=== PATIENT | female | born 1965 | race Caucasian/White ===

== ENCOUNTER 2024-02-01 07:53 | Outpatient (AMB) | payer MEDICAID, SELFPAY ==
--- NOTE | 2024-02-01 08:09 | ORTHONT_ITS ---
Vital signs 02/01/24 08:10 Height 1.5 m Height Method Stated Weight 88.451 kg Weight Measurement Method Standing Scale BMI 39.3 BP 121/79 Blood Pressure Source Automatic Cuff Blood Pressure Location Left Upper Arm Position Sitting Respiration 18 Pulse 62 Pulse Source Monitor Temp 96.1 F L Temp Source Temporal Artery Scan Pulse Oximetry (%) 97 Oxygen Delivery Method Room Air Med/Allergies Allergies & Medications Allergies No Known Allergies Allergy (Verified 02/01/24 08:10) Medication Reconciliation famotidine 40 mg tablet (Pepcid) 40 mg PO QDAY #30 tabs 07/16/20 [Rx Confirmed 02/01/24] acetaminophen 650 mg tablet,extended release (Tylenol Arthritis Pain) 650 mg PO Q12H pain #14 tabs 10/26/23 [Rx Confirmed 02/01/24] amlodipine 10 mg tablet 10 mg PO QDAY 02/01/24 [History Confirmed 02/01/24] losartan 100 mg-hydrochlorothiazide 25 mg tablet 1 tab PO QDAY 02/01/24 [History Confirmed 02/01/24] meloxicam 15 mg tablet 15 mg PO QDAY #60 tabs 02/01/24 [Rx] Subjective Visit Visit for: new patient and knee (RIGHT) Immunization / Flu Flu Vaccine in the Last 12 Months: Yes Flu Vaccine Exclusion Criteria: Already Received History of Present Illness Chief complaint: PAIN IN RIGHT KNEE Date of injury / onset of symptoms: 03/2021 Patient is a pleasant 58-year-old female with right greater than left knee pain. This been ongoing for over 3 years. She is tried meloxicam and injections in the past. She reports the pain is starting affect her quality life and happiness. The pain is primarily on the inside of both knees. She has noticed deformity in the knee which have been curving and recently. Personal History Occupation: FARM LABOR WORKER Pain Pain level (0-10): 10 Pain duration: CONSTANT Pain location: inside (medial), outside (lateral), anterior and posterior Pain quality: sharp, dull, aching, burning and shocking Pain timing: night, increases with activity and stairs Associated signs & symptoms: numbness, weakness and stiffness Ambulatory data Ambulatory device: none Treatments Number of previous injections: 1 Improvement with previous injections: No Improvement with PT: No Improvement with NSAIDS: no Review of Systems Review of Systems: All systems negative unless otherwise noted in HPI. Exam Exam Patient is in no acute distress and is cooperative with the examination today. Breathing is nonlabored. In no respiratory distress. Bilateral extremities were evaluated and demonstrates sensation intact to light touch. Palpable pedal pulses are present. No significant edema is present. Bilateral hips were examined. The patient has no pain with log roll of the hips. Internal rotation to 30 degrees and external rotation to 30 degrees is painless. Negative FADIR. The left knee was examined. The left knee is in [varus] alignment. Range of motion from [0-115] degrees. Knee is stable to varus and valgus as well as AP translation with <5mm. Patient has a [negative] McMurrays. There is [no] pain with patellofemoral compression and [no] crepitus noted. The knee is [tender] to palpation [medially]. The right knee was also examined. The right knee is in [varus] alignment. Range of motion from [0-120] degrees. Knee is stable to varus and valgus as well as AP translation with <5mm. Patient has a [negative] McMurrays. There is [no] pain with patellofemoral compression and [no] crepitus noted. The knee is [tender] to palpation [medially]. Nonweightbearing x-rays demonstrate severe arthritis on the right. There is varus deformity. We Will order bilateral knee x-rays that are weightbearing Assessment and Plan Problem List (1) Arthritis of both knees: Status: Acute Plan: 58-year-old female with bilateral knee pain and bilateral knee arthritis. She has significant varus deformity of both knees. The right knee pain is worse than the left. We will order weightbearing x-rays and go from there. She is actually already failed conservative treatment with pain is affecting her quality life and happiness. We will likely discuss total knee replacement depending on what the x-rays show Office Procedures GNS Level of Care Nursing/Assessment Patient Status: Initial/New Patient Nursing Assessment/Reassesment: Medication Reconciliation, Update PMH in EMR and Vital Signs Coordination of Care: Complex Care and Chronic Disease 1-5, Education Complex Pt/Fam, Consent,records obtained, informed consent, 1 Ins Authorization, Lab and Imaging orders, Results/Orders obtained and Staff clarify orders New Patient Charge New Patient Point Assignment: 1124 New Patient Point Charge: [employer] TE[employer] Level 4 ([id number]) Past Medical History Past Medical History Have you ever been diagnosed with any of the following: Cardiology Problems Congestive Heart Failure: No Hypertension: Yes Respiratory Problems Chronic Obstructive Pulmonary Disease (COPD): No Smoking: No Smoking Exposure: No Genital/Urinary Problems Renal Disease: No Endocrine Problems Diabetes Mellitus Type 1: No Diabetes Mellitus Type 2: No
[2024-02-01 08:10] VITALS: BP 121/79; PULSE 62; RESP 18; TEMP 35.6; O2SAT 97; BMI 39.3
== END 2024-02-01 08:39 | disposition home or self-care (01) ==
PROVIDERS: PCP Family Medicine; Referring Provider Family Medicine; Supervising Provider Orthopaedic Surgery Adult Reconstructive Orthopaedic Surgery; Visit Provider Orthopaedic Surgery Adult Reconstructive Orthopaedic Surgery
DX: M17.0 Bilateral primary osteoarthritis of knee (principal); M25.562 Pain in left knee; M25.561 Pain in right knee; M21.162 Varus deformity, not elsewhere classified, left knee; M21.161 Varus deformity, not elsewhere classified, right knee; I10 Essential (primary) hypertension
CPT/HCPCS: 99204; G0463

== ENCOUNTER 2024-02-15 07:56 | Outpatient (AMB) | payer MEDICAID, SELFPAY ==
[2024-02-15 08:11] VITALS: BP 127/79; PULSE 65; RESP 18; TEMP 36.1; O2SAT 97; BMI 39.9
--- NOTE | 2024-02-15 08:11 | PD.ORTHCLVIS ---
Vital signs 02/15/24 08:11 Height 1.5 m Height Method Stated Weight 89.896 kg Weight Measurement Method Standing Scale BMI 39.9 BP 127/79 Blood Pressure Source Automatic Cuff Blood Pressure Location Right Upper Arm Position Sitting Respiration 18 Pulse 65 Pulse Source Monitor Temp 96.9 F Temp Source Temporal Artery Scan Pulse Oximetry (%) 97 Oxygen Delivery Method Room Air Med/Allergies Allergies & Medications Allergies No Known Allergies Allergy (Verified 02/15/24 08:12) Medication Reconciliation famotidine 40 mg tablet (Pepcid) 40 mg PO QDAY #30 tabs 07/16/20 [Rx Confirmed 02/15/24] acetaminophen 650 mg tablet,extended release (Tylenol Arthritis Pain) 650 mg PO Q12H pain #14 tabs 10/26/23 [Rx Confirmed 02/15/24] amlodipine 10 mg tablet 10 mg PO QDAY 02/01/24 [History Confirmed 02/15/24] losartan 100 mg-hydrochlorothiazide 25 mg tablet 1 tab PO QDAY 02/01/24 [History Confirmed 02/15/24] meloxicam 15 mg tablet 15 mg PO QDAY #60 tabs 02/01/24 [Rx Confirmed 02/15/24] Subjective Visit Visit for: follow up visit, knee and x-rays Immunization / Flu Flu Vaccine in the Last 12 Months: No Flu Vaccine Exclusion Criteria: No Exclusion Criteria History of Present Illness Chief complaint: F/U KNEE XRAYS Date of injury / onset of symptoms: 03/2021 Patient is a pleasant 58-year-old female with right greater than left knee pain. This been ongoing for over 3 years. She is tried meloxicam and injections in the past. She reports the pain is starting affect her quality life and happiness. The pain is primarily on the inside of both knees. She has noticed deformity in the knee which has been curving in recently. Personal History Occupation: FARM LABOR WORKER Pain Pain level (0-10): 10 Pain duration: ALL DAY Pain location: inside (medial), outside (lateral), anterior and posterior Pain quality: sharp, dull and aching Pain timing: night, increases with activity and stairs Associated signs & symptoms: numbness, weakness and stiffness Ambulatory data Ambulatory device: none Treatments Number of previous injections: 1 Improvement with previous injections: No Improvement with PT: No Improvement with NSAIDS: n/a Review of Systems Review of Systems: All systems negative unless otherwise noted in HPI. Exam Exam Patient is in no acute distress and is cooperative with the examination today. Breathing is nonlabored. In no respiratory distress. Bilateral extremities were evaluated and demonstrates sensation intact to light touch. Palpable pedal pulses are present. No significant edema is present. Bilateral hips were examined. The patient has no pain with log roll of the hips. Internal rotation to 30 degrees and external rotation to 30 degrees is painless. Negative FADIR. The left knee was examined. The left knee is in [varus] alignment. Range of motion from [0-115] degrees. Knee is stable to varus and valgus as well as AP translation with <5mm. Patient has a [negative] McMurrays. There is [no] pain with patellofemoral compression and [no] crepitus noted. The knee is [tender] to palpation [medially]. The right knee was also examined. The right knee is in [varus] alignment. Range of motion from [0-120] degrees. Knee is stable to varus and valgus as well as AP translation with <5mm. Patient has a [negative] McMurrays. There is [no] pain with patellofemoral compression and [no] crepitus noted. The knee is [tender] to palpation [medially]. Xrays demonstrate complete joint space obliteration and osteoarthritis Bilaterally. Assessment and Plan Problem List (1) Arthritis of both knees: Status: Acute Plan: 58-year-old female with bilateral knee pain and bilateral knee arthritis. She has significant varus deformity of both knees. The right knee pain is worse than the left. Weightbearing x-rays demonstrate complete joint space obliteration medially and varus deformity. We thus discussed total knee replacement is reasonable option as she is failed injections and anti-inflammatories. The pain is also affecting her quality life and happiness. The last injections only lasted less than a month. We will start with a right total knee replacement as this is the knee that is bothering her more. She will need cardiac clearance as she sometimes gets lightheaded. She is seeing her pulp making plant operator tomorrow The nature and purpose of the total knee replacement, alternative method(s) of treatment, the material risks involved, and the possibility of complications were fully explained to the patient. The patient does NOT have any of the following contraindications to TKA: - Active infection of the knee joint, OR - Active systemic bacteremia, OR - Active skin infection or open wound at surgical site, OR - Neuropathic arthritis, OR - Severe, rapidly progressive neurological disease, OR - Severe medical condition that makes risks of surgery outweigh the potential benefit The patient was told the most common risks and complications associated with a total knee replacement include, but are not limited to: blood clots in the leg, fatal pulmonary embolism, dislocation of the prosthesis, intraoperative and postoperative fractures of the femur or tibia, infection, failure of the prosthesis or grafting materials, complications from anesthesia, reactions to blood transfusions, postoperative leg length inequality, instability of the knee replacement, nerve damage or injury, vascular injury, delayed wound healing, infection, other injury or even . In addition, there are risks associated with anesthesia given during this operation. Also, the patient was told that after undergoing a total knee replacement there may still be persistent pain or disability. The patient was informed that the success of this operation in part depends upon the mechanical devices which are going to be implanted and that these devices can fail or malfunction, and may need to be repaired or replaced and there are no guarantees as to the longevity of this device or its parts and that it or its parts could fail prematurely. The patient was also notified that during the course of surgery, there may be a need to use bone graft from donors, and that any bone graft used will be carefully screened for communicable diseases, including AIDS, hepatitis, Celso-Creutzfeldt, or other diseases, but despite the screening procedures, there is a small chance that they could contract one of these diseases. Finally, the patient was asked to follow completely and fully with all advice and recommended treatments, and that recovery and ultimate outcome are affected by their compliance with recommended treatment. We discussed the risks, benefits and treatment alternatives, and the patient is interested in proceeding with surgery. We will try to set this up as expeditiously as possible. Office Procedures GNS Level of Care Nursing/Assessment Patient Status: Established Patient Nursing Assessment/Reassesment: Medication Reconciliation, Update PMH in EMR and Vital Signs Coordination of Care: Complex Care and Chronic Disease 1-5, Education Complex Pt/Fam, Consent,records obtained, informed consent, Results/Orders obtained and Staff clarify orders Special Needs: Language special needs Established Patient Charge Established Patient Point Assignment: 95 Established Patient Point Charge: EP Level 3 (80-115) Past Medical History Past Medical History Have you ever been diagnosed with any of the following: Cardiology Problems Congestive Heart Failure: No Hypertension: Yes Respiratory Problems Chronic Obstructive Pulmonary Disease (COPD): No Smoking: No Smoking Exposure: No Genital/Urinary Problems Renal Disease: No Endocrine Problems Diabetes Mellitus Type 1: No Diabetes Mellitus Type 2: No
== END 2024-02-15 09:04 | disposition home or self-care (01) ==
LOC: HODSRG 07:56
PROVIDERS: PCP Family Medicine; Referring Provider Family Medicine; Supervising Provider Orthopaedic Surgery Adult Reconstructive Orthopaedic Surgery; Visit Provider Orthopaedic Surgery Adult Reconstructive Orthopaedic Surgery
DX: M17.0 Bilateral primary osteoarthritis of knee (principal); M25.562 Pain in left knee; M25.561 Pain in right knee; M21.162 Varus deformity, not elsewhere classified, left knee; M21.161 Varus deformity, not elsewhere classified, right knee; I10 Essential (primary) hypertension
CPT/HCPCS: 99213; G0463

== ENCOUNTER → 2024-03-06 | Outpatient (CLI) | payer MEDICAID, SELFPAY ==
--- NOTE | 2024-03-06 08:00 | XR_ITS ---
Examination: CT right lower extremity, without contrast. 2-D sagittal reconstructions. 2-D coronal reconstructions. 3-D reconstructions. Date and time of exam:March 06, 2024 0827 hours INDICATIONS: Osteoarthritis right knee pain 2 years CTDI: vol (mGy):12.9 DLP: (mGycm):916 Technique: Multiple 1.25 mm axial sections of the right have been obtained. 2-D sagittal and coronal reconstructions have been obtained. 3-D reconstructions have been obtained. Low dose protocols were performed. One or more of the following dose reduction techniques were used; automated exposure control, adjustment of the mA and/or KV according to patient size, use of iterative reconstruction technique. Findings: Moderate osteopenia Mild right hip osteoarthritis No hip fracture or hip dislocation Advanced right knee tricompartment osteoarthritis, severe narrowing medial joint space No fracture or patellar dislocation IMPRESSION: Advanced right knee tricompartment osteoarthritis, severe narrowing medial joint space
== END | disposition home or self-care (01) ==
PROVIDERS: Referring Provider Orthopaedic Surgery Adult Reconstructive Orthopaedic Surgery; Visit Provider Orthopaedic Surgery Adult Reconstructive Orthopaedic Surgery
DX: M17.11 Unilateral primary osteoarthritis, right knee (principal); M25.861 Other specified joint disorders, right knee
CPT/HCPCS: 73700

== ENCOUNTER 2024-03-11 10:29 | Outpatient (AMB) | payer MEDICAID, SELFPAY ==
--- NOTE | 2024-03-11 11:40 | PD.ORTHCLVIS ---
Vital signs 03/11/24 11:41 Height 1.5 m Height Method Stated Weight 89.811 kg Weight Measurement Method Standing Scale BMI 39.9 BP 129/75 Blood Pressure Source Automatic Cuff Blood Pressure Location Right Upper Arm Position Sitting Respiration 18 Pulse 60 Pulse Source Monitor Temp 97.4 F Temp Source Temporal Artery Scan Pulse Oximetry (%) 94 L Oxygen Delivery Method Room Air Med/Allergies Allergies & Medications Allergies No Known Allergies Allergy (Verified 03/11/24 11:42) Medication Reconciliation famotidine 40 mg tablet (Pepcid) 40 mg PO QDAY #30 tabs 07/16/20 [Rx Confirmed 03/11/24] acetaminophen 650 mg tablet,extended release (Tylenol Arthritis Pain) 650 mg PO Q12H pain #14 tabs 10/26/23 [Rx Confirmed 03/11/24] amlodipine 10 mg tablet 10 mg PO QDAY 02/01/24 [History Confirmed 03/11/24] losartan 100 mg-hydrochlorothiazide 25 mg tablet 1 tab PO QDAY 02/01/24 [History Confirmed 03/11/24] meloxicam 15 mg tablet 15 mg PO QDAY #60 tabs 02/01/24 [Rx Confirmed 03/11/24] Exam Exam Patient is in no acute distress and is cooperative with the examination today. Breathing is nonlabored. In no respiratory distress. Bilateral extremities were evaluated and demonstrates sensation intact to light touch. Palpable pedal pulses are present. No significant edema is present. Bilateral hips were examined. The patient has no pain with log roll of the hips. Internal rotation to 30 degrees and external rotation to 30 degrees is painless. Negative FADIR. The left knee was examined. The left knee is in [varus] alignment. Range of motion from [0-115] degrees. Knee is stable to varus and valgus as well as AP translation with <5mm. Patient has a [negative] McMurrays. There is [no] pain with patellofemoral compression and [no] crepitus noted. The knee is [tender] to palpation [medially]. The right knee was also examined. The right knee is in [varus] alignment. Range of motion from [0-120] degrees. Knee is stable to varus and valgus as well as AP translation with <5mm. Patient has a [negative] McMurrays. There is [no] pain with patellofemoral compression and [no] crepitus noted. The knee is [tender] to palpation [medially]. Xrays demonstrate complete joint space obliteration and osteoarthritis Bilaterally. Assessment and Plan Problem List (1) Arthritis of both knees: Status: Acute Plan: 58-year-old female with bilateral knee pain and bilateral knee arthritis. She has significant varus deformity of both knees. The right knee pain is worse than the left. Weightbearing x-rays demonstrate complete joint space obliteration medially and varus deformity. We thus discussed total knee replacement is reasonable option as she is failed injections and anti-inflammatories. The pain is also affecting her quality life and happiness. The last injections only lasted less than a month. We will start with a right total knee replacement as this is the knee that is bothering her more. She will need cardiac clearance as she sometimes gets lightheaded. She is seeing her doctor of chiropractic tomorrow The nature and purpose of the total knee replacement, alternative method(s) of treatment, the material risks involved, and the possibility of complications were fully explained to the patient. The patient does NOT have any of the following contraindications to TKA: - Active infection of the knee joint, OR - Active systemic bacteremia, OR - Active skin infection or open wound at surgical site, OR - Neuropathic arthritis, OR - Severe, rapidly progressive neurological disease, OR - Severe medical condition that makes risks of surgery outweigh the potential benefit The patient was told the most common risks and complications associated with a total knee replacement include, but are not limited to: blood clots in the leg, fatal pulmonary embolism, dislocation of the prosthesis, intraoperative and postoperative fractures of the femur or tibia, infection, failure of the prosthesis or grafting materials, complications from anesthesia, reactions to blood transfusions, postoperative leg length inequality, instability of the knee replacement, nerve damage or injury, vascular injury, delayed wound healing, infection, other injury or even . In addition, there are risks associated with anesthesia given during this operation. Also, the patient was told that after undergoing a total knee replacement there may still be persistent pain or disability. The patient was informed that the success of this operation in part depends upon the mechanical devices which are going to be implanted and that these devices can fail or malfunction, and may need to be repaired or replaced and there are no guarantees as to the longevity of this device or its parts and that it or its parts could fail prematurely. The patient was also notified that during the course of surgery, there may be a need to use bone graft from donors, and that any bone graft used will be carefully screened for communicable diseases, including AIDS, hepatitis, Celso-Creutzfeldt, or other diseases, but despite the screening procedures, there is a small chance that they could contract one of these diseases. Finally, the patient was asked to follow completely and fully with all advice and recommended treatments, and that recovery and ultimate outcome are affected by their compliance with recommended treatment. We discussed the risks, benefits and treatment alternatives, and the patient is interested in proceeding with surgery. We will try to set this up as expeditiously as possible. Office Procedures GNS Level of Care Nursing/Assessment Patient Status: Established Patient Nursing Assessment/Reassesment: Medication Reconciliation, Update PMH in EMR and Vital Signs Coordination of Care: Complex Care and Chronic Disease 1-5, Education Complex Pt/Fam, Consent,records obtained, informed consent, Results/Orders obtained and Staff clarify orders Special Needs: Language special needs Established Patient Charge Established Patient Point Assignment: 95 Established Patient Point Charge: EP Level 3 (80-115) MA Intake Visit Data Collection New Patient or Established: Established Patient (seen at [facility] within 3 years) Reason for Visit:: PRE OP OF RT TKA Seen by Clinical Staff ONLY (RN/MA): No Verbal consent obtained for Telemed visit?: No Event Services Manager Required: No PCP or OBGYN visit in last 3 months: Yes Hx Now: No Do You Feel Safe at Home: Yes Authorities Contacted: N/A Questionairres Past Medical History Past Medical History Have you ever been diagnosed with any of the following: Cardiology Problems Congestive Heart Failure: No Hypertension: Yes Respiratory Problems Chronic Obstructive Pulmonary Disease (COPD): No Smoking: No Smoking Exposure: No Genital/Urinary Problems Renal Disease: No Endocrine Problems Diabetes Mellitus Type 1: No Diabetes Mellitus Type 2: No Subjective Visit Visit for: follow up visit and knee Immunization / Flu Flu Vaccine in the Last 12 Months: Yes Flu Vaccine Exclusion Criteria: Already Received History of Present Illness Chief complaint: PRE-OPT RT TKA Patient is a pleasant 58-year-old female with right greater than left knee pain. This been ongoing for over 3 years. She is tried meloxicam and injections in the past. She reports the pain is starting affect her quality life and happiness. The pain is primarily on the inside of both knees. She has noticed deformity in the knee which has been curving in recently. Pain Pain duration: 8 Pain location: inside (medial), outside (lateral), anterior and posterior Pain quality: sharp, dull and aching Ambulatory data Ambulatory device: none Treatments Improvement with previous injections: No Improvement with PT: No Improvement with NSAIDS: n/a Review of Systems Review of Systems: All systems negative unless otherwise noted in HPI.
[2024-03-11 11:41] VITALS: BP 129/75; PULSE 60; RESP 18; TEMP 36.3; O2SAT 94; BMI 39.9
== END 2024-03-11 11:51 | disposition home or self-care (01) ==
LOC: HODSRG 10:29
PROVIDERS: PCP Family Medicine; Referring Provider Family Medicine; Supervising Provider Orthopaedic Surgery Adult Reconstructive Orthopaedic Surgery; Visit Provider Orthopaedic Surgery Adult Reconstructive Orthopaedic Surgery
DX: M17.0 Bilateral primary osteoarthritis of knee (principal); M25.562 Pain in left knee; M25.561 Pain in right knee; Z96.651 Presence of right artificial knee joint; M21.162 Varus deformity, not elsewhere classified, left knee; M21.161 Varus deformity, not elsewhere classified, right knee; I10 Essential (primary) hypertension
CPT/HCPCS: 99213; G0463

== ENCOUNTER 2024-03-19 07:00 | Day surgery (SDC) | payer MEDICAID, SELFPAY ==
[2024-03-17 07:23] VITALS: BMI 44.4
[2024-03-17 09:52] LABS: Basophils % (Auto) 1 % (0-2.5); Eosinophils # (Auto) 0.3 Thou/mm3 (0.0-0.5); Eosinophils % (Auto) 4 % (0-10); Hematocrit 38.2 % (36.0-46.0); Hemoglobin 13.1 g/dL (12.0-16.0); Immature Granulocytes % (Auto) 0 % (0-0); Immature Granulocytes Auto 0.02 Thou/mm3 (0.00-0.00); Lymphocytes # (Auto) 2.8 Thou/mm3 (1.0-4.8); Lymphocytes % (Auto) 39 % (10-50); Mean Corpuscular HGB Conc 34.3 g/dl (31.0-37.0); Mean Corpuscular Hemoglobin 32.2 pg (25.0-35.0); Mean Corpuscular Volume 94 fL (80-100); Monocytes # (Auto) 0.4 Thou/mm3 (0.0-0.8); Monocytes % (Auto) 6 % (0-12); Neutrophils # (Auto) 3.6 Thou/mm3 (1.8-7.7); Neutrophils % (Auto) 50 % (37-80); Nucleated Red Blood Cell % 0 /100 WBC (0); Platelet Count 235 Thou/mm3 (140-440); RDW Standard Deviation 43.9 fL (36.4-46.3); Red Blood Count 4.07 Miln/mm3 (4.00-5.20); White Blood Count 7.1 Thou/mm3 (3.6-11.0)
[2024-03-17 09:55] LABS: Alanine Aminotransferase 15 U/L (10-49); Albumin, Serum 4.5 gm/dL (3.4-4.8); Albumin/Globulin Ratio 1.5 (1.2-2.2); Alkaline Phosphatase 104 U/L (46-116); Anion Gap 8 (7-16); Aspartate Amino Transferase 30 U/L (0-34); BUN/Creatinine Ratio 23 Ratio (12-20); Bilirubin,Total 0.6 mg/dL (0.3-1.2); Blood Urea Nitrogen 23 mg/dL (9-23); Calcium 9.8 mg/dL (8.3-10.6); Calcium (Corrected) 9.8 mg/dL (8.5-10.1); Carbon Dioxide 28.1 mMol/L (20.0-31.0); Chloride 104 mMol/L (98-107); Estimated Creatinine Clearance 55.8 mL/min (>60); Glucose 103 mg/dL (74-106); Osmolality,Calculated 283 (275-295); Potassium 4.2 mMol/L (3.4-5.1); Sodium 140 mMol/L (136-145); Total Protein 7.5 gm/dL (5.7-8.2); eGFR > 60 See Note
[2024-03-17 09:56] LABS: INR 1.1 (0.9-1.3); Partial Thromboplastin Time 26.6 Seconds (22.0-36.0); Prothrombin Time 11.9 Seconds (9.0-12.2)
--- NOTE | 2024-03-17 13:29 | SUR.PREOP ---
Cardiac records reviewed with Dr Giraldo.
[2024-03-19] VITALS (15 sets, daily range): BP systolic 109–127; BP diastolic 60–80; PULSE 58–92; RESP 13–20; TEMP 36.4–36.9; O2SAT 96–100; BMI 43.9
[2024-03-19] MEDS: RINGERS LACTATED 1000 ML 1,000 ML 20 ML IV (07:40)
[2024-03-19] MEDS: MELOXICAM 7.5 MG TABLET PO (07:41)
[2024-03-19] MEDS: ACETAMINOPHEN 325 MG TABLET 650 MG PO (07:41)
[2024-03-19] MEDS: PREGABALIN 75 MG CAPSULE PO (07:41)
--- NOTE | 2024-03-19 12:03 | ESOP_ITS ---
Date of Procedure 03/19/24 Pre Op Diagnosis right knee osteoarthritis Post Op Diagnosis right knee osteoarthritis Procedure right total knee replacement Findings full thickness cartilage loss and osteophytes Procedure Description Indication: The patient is a 58 year old who has a long history of right knee pain. X-rays show degenerative arthritis involving the knee. Over the past several years the patient has had increasing pain, progressive limitation in function. He has failed conservative measures including activity modification, physical therapy, injections, anti-inflammatories, and assistive devices. After a lengthy discussion of the risks and benefits, the patient presents now for total knee replacement. The nature and purpose of the total knee replacement, alternative method(s) of treatment, the material risks involved, and the possibility of complications were fully explained to the patient. The patient was told the most common risks and complications associated with a total knee replacement include, but are not limited to blood clots in the leg, fatal pulmonary embolism, dislocation of the prosthesis, intraoperative and postoperative fractures of the femur or tibia, infection, failure of the prosthesis or grafting materials, complications from anesthesia, reactions to blood transfusions, postoperative leg length inequality, instability of the knee replacement, nerve damage or injury, vascular injury, delayed wound healing, infections, other injury or even . In addition, there are risks associated with anesthesia given during this operation, temporary or permanent numbness on the skin lateral to the incision can be a complication unique to total knee surgery, and kneeling can be painful after knee replacement surgery. Also, the patient was told that after undergoing a total knee replacement there may still be pain or disability. We discussed with the patient that we will be using a robot-assisted technology. We discussed that there is a possibility of converting to manual instrumentation. The patient was informed that the success of this operation in part depends upon the mechanical devices which are going to be implanted and that these devices can fail or malfunction, and may need to be repaired or replaced and there are no guarantees as to the longevity of this device or its part and that it or its parts could fail prematurely. Finally, the patient was asked to follow completely and fully with all advice and recommended treatments, and that recovery and ultimate outcome are affected by their compliance with recommended treatment. Surgical technique: Patient was marked and consented in the pre-operative area. The patient was brought to the operating room and placed on the operating table in a supine position. Prior to positioning, a timeout procedure was performed between the surgeon, the anesthesiologist, and the nursing staff where the patient and the operative side were identified and confirmed. After adequate general anesthetic was obtained, the right lower extremity was prepped and draped in the usual sterile fashion. A weight based dose of Cefazolin were administered within 1 hour prior to incision. The robot was preregistered and calirated before the incision. The extremity was exsanguinated with an esmarch badge and tourniquet inflated to 250mmHg. A midline incision was made. A median parapatellar arthrotomy was made. The patella was subluxed laterally. A medial release was performed to expose the medial tibia. His femoral and tibial pins were placed through an intra incisional manner for both cases. Every effort was made to ensure that the distalmost aspect of the pin was hung in the second cortex. The arrays were then tightened several times to ensure that it was fixed for the remainder of the case. Both femoral and tibial checkpoints were then placed. We then went through the registration process of the bone. We then assessed the knee deformity and attempted to correct it. We also used the robot to aid in judging laxity in both extension and flexion. Final based on laxity and alignment we changed the preoperative assessment to obtain proper proper implant positioning and to correct deformity. Attention was then placed to the tibia. We made a tibial cut using the robot ensuring that both the MCL and the patella tendon were protected with retractors. We then went to the femur and made the posterior cut followed by the anterior cut and the anterior chamfer. The bone was then removed and we made a distal femur cut and a posterior chamfer cut. We verified all cuts. A trial reduction was performed with a size 2 femoral component and a size 3 keeled tibial component. The patella tracked centrally, and no lateral retinacular release was necessary. The trial implants were removed. The arrays, pins, and checkpoints were all removed. We performed a verification that all pins were removed. The cut bone surfaces were lavaged. A size 2 right femoral component, a size 3 keeled tibial component were impacted into position. The knee was felt to be well balanced in the sagittal and coronal plane. The final 3x10 mm cruciate- substituting articular insert was impacted into the tibial tray. The knee was brought out to full extension, flexed up to 120 degrees. It was stable to varus and valgus stress and appropriately balanced in flexion and extension. The wounds were copiously irrigated following deflation of tourniquet. The medial retinaculum was reapproximated with #1 vicryl and quill. The subcutaneous tissues were closed with 0 and 2-0 interrupted Vicryl. The skin was closed with 3-0 Monofilament V loc suture. A sterile dressing was applied. The patient was transferred to a bed and brought to recovery in stable condition. The patient tolerated the procedure well. There were no intraoperative complications. Sponge and needle counts were correct times 2. As the attending surgeon, Randall gould I was present and performed the entire operation. Grafts/Implants Size 2 CR Femur Size 3 Tibia 10mm poly CS Anesthesia spinal Implants [employer] Pathology / specimen None Pathology comment: none Estimated Blood Loss 150 Condition Stable Disposition same day Surgeon Red Morrison MD Surgical Staff Operation Date: 03/19/24 10:15 Case Staff Anesthesiologist: Reinier Giraldo RNlockstitch sleeve setter: Judie Verma
--- NOTE | 2024-03-19 12:10 | XR_ITS ---
Examination: Right knee 2 views Technique one AP lateral right knee 2 views Standing time: March 19, 2024 1302 hours INDICATIONS: Postop knee replacement today. FINDINGS: Moderate osteopenia Total right knee replacement Satisfactory alignment No fracture IMPRESSION: Total right knee arthroplasty with satisfactory alignment
--- NOTE | 2024-03-19 12:24 | SUR.PHASEI ---
1224 Patient arrived to recovery resting comfortably in [facility], on oxygen 10L via oxy mask with a nasophayngeal airway in place, breathing unlabored, vital signs stable, dressing intact to right lower extremity; prineo, abd, telfa, webril, alonso wraps, no bleeding noted, bilateral dorsalis pedis pulses present when palpated, patient has good circulation to right lower extremity; skin color normal for patient and warm to touch, report received from Raquel CANTU and Dr. Giraldo
--- NOTE | 2024-03-19 13:08 | SUR.PHASEI ---
1308 XRAY complete per MD order
--- NOTE | 2024-03-19 13:20 | SUR.PHASEII ---
1320 Patients daughters at bedside with patient
--- NOTE | 2024-03-19 14:17 | SUR.PHASEII ---
1417 Patient clear by PT to proceed with discharge
--- NOTE | 2024-03-19 14:30 | SUR.PHASEII ---
1430 working with patient using incentive spirometer
--- NOTE | 2024-03-19 15:04 | SUR.PHASEII ---
1500 Dr. Morrison at bedside patient, sleepy at times, falling asleep and oxygen decreasing, patient is easily arouse and then oxygen increasing right away, Dr. Morrison monitor this, Dr. Morrison stated this was normal for patient as patient has shared she might have sleep apnea, Dr. Morrison told patient and her daughters to follow up with primary care provided for sleep study, all receptive, Dr. Morrison stated patient could proceed with discharge
--- NOTE | 2024-03-19 15:28 | SUR.PHASEII ---
1528 Patient meet discharge criteria from recovery, awake and alert, breathing unlabored, vital sign stable, denies pain, dressing intact; no bleeding noted, denies nausea, patient assisted with dressing into her clothing by her daughter, patient signed limited proficiency statement for her daughter to industrial gas fitter to her, discharge instructions given to patient and patients daughter, daughter signed discharge instructions. Patient given all her belongings prior to discharge, transported via wheelchair and left in a private vehicle.
--- NOTE | 2024-03-25 13:34 | ESPR_ITS ---
Documentation for date of: 03/25/24 POST ANESTHESIA NOTE: Patient had GETA and R adductor block for R TKA on 03/19/24. I just called and spoke with her on the phone via printer's assistant and she denied any problems from anesthesia. Reinier Giraldo MD Anesthesia Progress Note Progress Note Most recent Vital Signs: Last Vital Signs Temp 97.5 F 03/19/24 14:54 Pulse 68 03/19/24 15:09 Resp 15 03/19/24 15:09 BP 114/61 03/19/24 15:09 Pulse Ox 96 03/19/24 15:09 O2 Flow Rate 6 03/19/24 13:09
== END 2024-03-19 15:28 | disposition home or self-care (01) ==
PROVIDERS: Anesthesiology; PCP Family Medicine; Referring Provider Orthopaedic Surgery Adult Reconstructive Orthopaedic Surgery; Visit Provider Orthopaedic Surgery Adult Reconstructive Orthopaedic Surgery
PROC: (CPT 27447; principal; 2024-03-19 10:00)
DX: M17.11 Unilateral primary osteoarthritis, right knee (principal)
CPT/HCPCS: 27447; 20985; 36415; 73560; 80053; 85025; 85610; 85730; 97162; A4217; C1713; C1776; J0171; J0690; J1100; J1885; J2250; J2405; J2704; J2795; J3010; J3490; J7030; J7120; P9045; A4648; A4649; A9270; J1805

== ENCOUNTER 2024-04-04 09:48 | Outpatient (AMB) | payer MEDICAID, SELFPAY ==
[2024-04-04 10:15] VITALS: BP 129/80; PULSE 68; RESP 18; TEMP 36.6; O2SAT 96; BMI 43.2
--- NOTE | 2024-04-04 10:15 | ORTHONT_ITS ---
Vital signs 04/04/24 10:15 Height 1.42 m Height Method Stated Weight 87.26 kg Weight Measurement Method Standing Scale BMI 43.2 BP 129/80 Blood Pressure Source Automatic Cuff Blood Pressure Location Left Upper Arm Position Sitting Respiration 18 Pulse 68 Pulse Source Monitor Temp 97.8 F Temp Source Temporal Artery Scan Pulse Oximetry (%) 96 Oxygen Delivery Method Room Air Med/Allergies Allergies & Medications Allergies No Known Allergies Allergy (Verified 04/04/24 10:16) Medication Reconciliation amlodipine 10 mg tablet 10 mg PO QDAY 02/01/24 [History Confirmed 04/04/24] losartan 100 mg-hydrochlorothiazide 25 mg tablet 1 tab PO QDAY 02/01/24 [History Confirmed 04/04/24] meloxicam 15 mg tablet 15 mg PO QDAY #60 tabs 02/01/24 [Rx Confirmed 04/04/24] carvedilol 3.125 mg tablet (Coreg) 3.125 mg PO BID 03/17/24 [History Confirmed 04/04/24] acetaminophen 500 mg tablet (Acetaminophen Extra Strength) 1,000 mg (2 x 500 mg) PO Q6H PRN pain #90 tabs 03/19/24 [Rx Confirmed 04/04/24] aspirin 81 mg tablet,delayed release 81 mg PO BID #60 tabs 03/19/24 [Rx Confirmed 04/04/24] doxycycline hyclate 100 mg tablet 100 mg PO BID #14 tabs 03/19/24 [Rx Confirmed 04/04/24] gabapentin 300 mg capsule 300 mg PO .qhs #30 caps 03/19/24 [Rx Confirmed 04/04/24] oxycodone 5 mg tablet 5 mg PO Q6H PRN pain #28 tabs 03/19/24 [Rx Confirmed 04/04/24] oxycodone 5 mg tablet 5 mg PO Q6H PRN pain #28 tabs 03/19/24 [Rx Confirmed 04/04/24] oxycodone 5 mg tablet 5 mg PO Q6H PRN pain #28 tabs 03/19/24 [Rx Confirmed 04/04/24] sennosides 8.6 mg-docusate sodium 50 mg tablet (Senna-S) 1 tab-cap PO QDAY #30 tabs 03/19/24 [Rx Confirmed 04/04/24] acetaminophen 500 mg tablet (Acetaminophen Extra Strength) 1,000 mg (2 x 500 mg) PO Q6H PRN pain #90 tabs 04/03/24 [Rx Confirmed 04/04/24] oxycodone 5 mg tablet 5 mg PO Q6H PRN pain #28 tabs 04/03/24 [Rx Confirmed 04/04/24] Exam Exam Patient is in no acute distress and is cooperative with the examination today. Breathing is nonlabored. In no respiratory distress. Bilateral extremities were evaluated and demonstrates sensation intact to light touch. Palpable pedal pulses are present. No significant edema is present. Bilateral hips were examined. The patient has no pain with log roll of the hips. Internal rotation to 30 degrees and external rotation to 30 degrees is painless. Negative FADIR. The left knee was examined. The left knee is in [varus] alignment. Range of motion from [0-115] degrees. Knee is stable to varus and valgus as well as AP translation with <5mm. Patient has a [negative] McMurrays. There is [no] pain with patellofemoral compression and [no] crepitus noted. The knee is [tender] to palpation [medially]. Right Knee incision is clean dry and intact Assessment and Plan Problem List (1) Arthritis of both knees: Status: Acute Plan: 58-year-old female with bilateral knee pain and bilateral knee arthritis. SShe is status post right total knee replacement is doing well. Her pain is well- controlled. We will see her back in 4 weeks before routine follow-up Office Procedures GNS Level of Care Nursing/Assessment Patient Status: Established Patient Nursing Assessment/Reassesment: Medication Reconciliation, Update PMH in EMR and Vital Signs Coordination of Care: Complex Care and Chronic Disease 1-5, Education Complex Pt/Fam, Consent,records obtained, informed consent, Results/Orders obtained and Staff clarify orders Special Needs: Language special needs Established Patient Charge Established Patient Point Assignment: 95 Established Patient Point Charge: EP Level 3 (80-115) MA Intake Visit Data Collection New Patient or Established: Established Patient (seen at [facility] within 3 years) Reason for Visit:: 2 WEEK F/U R TKA Seen by Clinical Staff ONLY (RN/MA): No Operations Trainer Required: No PCP or OBGYN visit in last 3 months: Yes Hx Now: No Do You Feel Safe at Home: Yes Authorities Contacted: N/A Questionairres Past Medical History Past Medical History Have you ever been diagnosed with any of the following: Neurological Problems Seizures: No Cardiology Problems Congestive Heart Failure: No Hypertension: Yes Respiratory Problems Chronic Obstructive Pulmonary Disease (COPD): No Smoking: No Smoking Exposure: No Stomache/Intestinal Problems Hepatitis: No Obesity: Yes Genital/Urinary Problems Renal Disease: No Kidney Stones: No Reproductive Problems Previous Pregnancies: Yes Musculoskeletal Problems Arthritis: Yes Endocrine Problems Diabetes Mellitus Type 1: No Diabetes Mellitus Type 2: No Other Problems Hospitalization: No Shingles: No Falls: No Blood Transfusions: No Blood Transfusion Reaction: No Anesthesia Reactions: No Cancer: No Subjective Visit Visit for: follow up visit, post op #1 (2 WEEK) and knee (RIGHT) Immunization / Flu Flu Vaccine in the Last 12 Months: No Flu Vaccine Exclusion Criteria: No Exclusion Criteria History of Present Illness Chief complaint: Right total knee replacement Patient is doing well status post right total knee replacement. She has minimal pain and swelling. Pain Pain level (0-10): 5 Pain duration: WITH MOVEMENT Pain location: anterior Pain quality: aching Associated signs & symptoms: numbness Ambulatory data Ambulatory device: walker Treatments Improvement with previous injections: No Improvement with PT: No Improvement with NSAIDS: no Review of Systems Review of Systems: All systems negative unless otherwise noted in HPI.
== END 2024-04-04 10:38 | disposition home or self-care (01) ==
LOC: HODSRG 09:48
PROVIDERS: PCP Family Medicine; Referring Provider Family Medicine; Supervising Provider Orthopaedic Surgery Adult Reconstructive Orthopaedic Surgery; Visit Provider Orthopaedic Surgery Adult Reconstructive Orthopaedic Surgery
DX: M17.0 Bilateral primary osteoarthritis of knee (principal); M25.562 Pain in left knee; M25.561 Pain in right knee; Z96.651 Presence of right artificial knee joint; I10 Essential (primary) hypertension; E66.9 Obesity, unspecified; Z68.41 Body mass index [BMI] 40.0-44.9, adult
CPT/HCPCS: 99213; G0463

== ENCOUNTER → 2024-04-30 | Outpatient (CLI) | payer MEDICAID, SELFPAY ==
--- NOTE | 2024-04-30 10:41 | XR_ITS ---
Examination: Right knee 4 views TECHNIQUE: AP oblique lateral axial right knee 4 views standing Exam date and time: April 30, 2019 5:11 AM INDICATIONS: Right knee replacement March 19, 2024 FINDINGS: Moderate osteopenia Total right knee arthroplasty. Satisfactory alignment No fracture No patellar dislocation IMPRESSION: Total right knee arthroplasty with satisfactory alignment
== END | disposition home or self-care (01) ==
PROVIDERS: PCP Family Medicine; Referring Provider Orthopaedic Surgery Adult Reconstructive Orthopaedic Surgery; Visit Provider Orthopaedic Surgery Adult Reconstructive Orthopaedic Surgery
DX: Z96.651 Presence of right artificial knee joint (principal)
CPT/HCPCS: 73564

== ENCOUNTER 2024-05-06 13:05 | Outpatient (AMB) | payer MEDICAID, SELFPAY ==
[2024-05-06 13:29] VITALS: BP 125/79; PULSE 77; RESP 18; TEMP 36.7; O2SAT 95; BMI 43.2
--- NOTE | 2024-05-06 13:29 | ORTHONT_ITS ---
Vital signs 05/06/24 13:29 Height 1.42 m Height Method Stated Weight 87.146 kg Weight Measurement Method Standing Scale BMI 43.2 BP 125/79 Blood Pressure Source Automatic Cuff Blood Pressure Location Right Upper Arm Position Sitting Respiration 18 Pulse 77 Pulse Source Monitor Temp 98.0 F Temp Source Temporal Artery Scan Pulse Oximetry (%) 95 Oxygen Delivery Method Room Air Med/Allergies Allergies & Medications Allergies No Known Allergies Allergy (Verified 05/06/24 13:30) Exam Exam Patient is in no acute distress and is cooperative with the examination today. Breathing is nonlabored. In no respiratory distress. Bilateral extremities were evaluated and demonstrates sensation intact to light touch. Palpable pedal pulses are present. No significant edema is present. Bilateral hips were examined. The patient has no pain with log roll of the hips. Internal rotation to 30 degrees and external rotation to 30 degrees is painless. Negative FADIR. The left knee was examined. The left knee is in [varus] alignment. Range of motion from [0-115] degrees. Knee is stable to varus and valgus as well as AP translation with <5mm. Patient has a [negative] McMurrays. There is [no] pain with patellofemoral compression and [no] crepitus noted. The knee is [tender] to palpation [medially]. Right Knee incision is clean dry and intact xrays demonstrate a cementless total knee replacement in good alignment and position Assessment and Plan Problem List (1) Arthritis of both knees: Status: Acute Plan: 58-year-old female with bilateral knee pain and bilateral knee arthritis. She is status post right total knee replacement is doing well. Her pain is well- controlled. We will see her back in 6 weeks for routine followup. You may need an extension of her disability as she has a very difficult manual labor job. She is interested in possibly getting her other side done first. Office Procedures GNS Level of Care Nursing/Assessment Patient Status: Established Patient Nursing Assessment/Reassesment: Medication Reconciliation, Update PMH in EMR and Vital Signs Coordination of Care: Complex Care and Chronic Disease 1-5, Education Complex Pt/Fam, Consent,records obtained, informed consent, Results/Orders obtained and Staff clarify orders Special Needs: Language special needs Established Patient Charge Established Patient Point Assignment: 95 Established Patient Point Charge: EP Level 3 (80-115) MA Intake Visit Data Collection New Patient or Established: Established Patient (seen at [facility] within 3 years) Reason for Visit:: 6 WK RT TKA POST OP Seen by Clinical Staff ONLY (RN/MA): No Verbal consent obtained for Telemed visit?: No Supervisor Cigar Making Machine Required: Yes PCP or OBGYN visit in last 3 months: Yes Hx Now: No Do You Feel Safe at Home: Yes Authorities Contacted: N/A Questionairres Past Medical History Past Medical History Have you ever been diagnosed with any of the following: Neurological Problems Seizures: No Cardiology Problems Congestive Heart Failure: No Hypertension: Yes Respiratory Problems Chronic Obstructive Pulmonary Disease (COPD): No Smoking: No Smoking Exposure: No Stomache/Intestinal Problems Hepatitis: No Obesity: Yes Genital/Urinary Problems Renal Disease: No Kidney Stones: No Reproductive Problems Previous Pregnancies: Yes Musculoskeletal Problems Arthritis: Yes Endocrine Problems Diabetes Mellitus Type 1: No Diabetes Mellitus Type 2: No Other Problems Hospitalization: No Shingles: No Falls: No Blood Transfusions: No Blood Transfusion Reaction: No Anesthesia Reactions: No Cancer: No Subjective Visit Visit for: follow up visit, post op #2 and knee Immunization / Flu Flu Vaccine in the Last 12 Months: Yes Flu Vaccine Exclusion Criteria: Already Received History of Present Illness Chief complaint: 6 WEEK POST OP RT TKA Patient is doing well status post right total knee replacement. She has minimal pain and swelling. She is doing well and is losing weight Pain Pain level (0-10): 6 Pain duration: COMES AND GOES Pain location: inside (medial), outside (lateral) and anterior Pain quality: sharp, dull and aching Associated signs & symptoms: numbness Ambulatory data Ambulatory device: cane Treatments Improvement with previous injections: No Improvement with PT: No Improvement with NSAIDS: no Review of Systems Review of Systems: All systems negative unless otherwise noted in HPI.
== END 2024-05-06 13:46 | disposition home or self-care (01) ==
LOC: HODSRG 13:05
PROVIDERS: PCP Family Medicine; Referring Provider Family Medicine; Supervising Provider Orthopaedic Surgery Adult Reconstructive Orthopaedic Surgery; Visit Provider Orthopaedic Surgery Adult Reconstructive Orthopaedic Surgery
DX: M17.0 Bilateral primary osteoarthritis of knee (principal); M25.562 Pain in left knee; M25.561 Pain in right knee; Z96.651 Presence of right artificial knee joint; I10 Essential (primary) hypertension
CPT/HCPCS: 99213; G0463

== ENCOUNTER 2024-06-05 10:30 | Outpatient (RCR) | payer MEDICAID, SELFPAY ==
--- NOTE | 2024-05-13 11:42 | PT.OIERPT ---
PT OP Initial Eval Patient Information Outpatient Physical Therapy Treatment Date: 05/13/24 Visit Reasons: RT TKA Medical Diagnosis: Z96.651 Treatment Dx #1: R knee pain Treatment Dx #2: Dec ROM R knee Start of Care: 05/13/24 Date of Onset: 03/19/24 DOS Smoking Status Smoking Status: Never smoker Initial Assessment Subjective: Pt is 59 yr old mongolian speaking female s/p R TKA presents ambulating with cane since the sx. She reports pain with bending the knee, and prolonged sitting and then standing up. She is ambulating limited distances at home and in her yard. PMH: HTN Pt goal: to walk better and bend the knee back Objective: R knee AROM: ? Flexion: 92 deg ? Extension: -6 deg ? SLR: ? 65 deg with extensor lag ? Strength: 4-/5 ? Quads and hamstrings 4-/5 ? Antalgic gait pattern with decreased WB tolerance on R LE Assessment: Pt presentation consistent with post op R TKA with decreased ROM, strength ? and WB tolerance. Pt lacks a few degrees of knee extension and flexion is limited by ? myofascial limitations and pain.? Pt requires skilled therapy to improve ROM ? and strength and has good rehab potential.? Eval followed by HEP with printout. Short Term and [facility] Goals 1. Independent with HEP ? 2. Improved knee flexion ROM to at least 110 deg and full extension ? 3. Improved quad and hamstring strength to 4+/5 ? 4. Improved ambulatory tolerance to community distances with symmetrical ? gait pattern. Treatment Plan ? 1. Manual therapy ? 2. Therex ? 3. Modalities as indicated, moist heat, ice, estim Frequency and Duration: 2x-3x a week for 18 Rx visits Certification Dates: 05/13/24 to 08/13/24 Procedure Charges OP PT Eval Mod Complex 30 minutes: Yes
--- NOTE | 2024-05-14 16:11 | PT.ODAYNRPT ---
PT Outpatient Daily Note OP Daily Note Outpatient Physical Therapy Treatment Date: 05/14/24 Visit Reasons: RT TKA Subjective: Same as time of eval Objective: See F/S for therex MT: PROM into knee flexion in sitting x7' Assessment: Improved PROM into flexion to about 100 deg with overpressure Plan: Continue per POC Length of Time (minutes) of Treatment: 30 Minutes Procedure Charges Therapeutic Exercise 30 minutes: Yes
--- NOTE | 2024-05-19 11:53 | PT.ODAYNRPT ---
PT Outpatient Daily Note OP Daily Note Outpatient Physical Therapy Treatment Date: 05/19/24 Visit Reasons: RT TKA Subjective: Ambulating with cane and doing HEP Objective: See F/S for therex MT: PROM into knee flexion in sitting x7' Assessment: Improved PROM into flexion to about 104 deg with overpressure Plan: Continue per POC Length of Time (minutes) of Treatment: 30 Minutes Procedure Charges Therapeutic Exercise 30 minutes: Yes
--- NOTE | 2024-05-21 11:56 | PT.ODAYNRPT ---
PT Outpatient Daily Note OP Daily Note Outpatient Physical Therapy Treatment Date: 05/21/24 Visit Reasons: RT TKA Subjective: Ambulating with cane and doing HEP Objective: See F/S for therex MT: PROM into knee flexion in sitting x7' Assessment: Improved PROM into flexion to about 104 deg with overpressure Plan: Continue per POC Length of Time (minutes) of Treatment: 30 Minutes Procedure Charges Therapeutic Exercise 30 minutes: Yes
--- NOTE | 2024-05-27 10:35 | PT.ODAYNRPT ---
PT Outpatient Daily Note OP Daily Note Outpatient Physical Therapy Treatment Date: 05/27/24 Visit Reasons: RT TKA Subjective: Ambulating with cane and doing HEP Objective: See F/S for therex MT: PROM into knee flexion in sitting x7' Assessment: Improved PROM into flexion to about 110 deg with overpressure Plan: Continue per POC Length of Time (minutes) of Treatment: 30 Minutes Procedure Charges Therapeutic Exercise 30 minutes: Yes
--- NOTE | 2024-05-29 10:39 | PT.ODAYNRPT ---
PT Outpatient Daily Note OP Daily Note Outpatient Physical Therapy Treatment Date: 05/29/24 Visit Reasons: RT TKA Subjective: Ambulating with cane and doing HEP Objective: See F/S for therex MT: PROM into knee flexion in sitting x7' Assessment: Improved PROM into flexion to about 110 deg with overpressure Plan: Continue per POC Procedure Charges Therapeutic Exercise 30 minutes: Yes
--- NOTE | 2024-06-03 13:26 | PT.ODAYNRPT ---
PT Outpatient Daily Note OP Daily Note Outpatient Physical Therapy Treatment Date: 06/03/24 Visit Reasons: RT TKA Subjective: Ambulating with cane and doing HEP Objective: See F/S for therex MT: PROM into knee flexion in sitting x7' Assessment: Improved PROM into flexion to about 110 deg with overpressure Plan: Continue per POC Length of Time (minutes) of Treatment: 30 Minutes Procedure Charges Therapeutic Exercise 30 minutes: Yes
--- NOTE | 2024-06-05 13:56 | PT.ODAYNRPT ---
PT Outpatient Daily Note OP Daily Note Outpatient Physical Therapy Treatment Date: 06/05/24 Visit Reasons: RT TKA Subjective: Ambulating with cane and doing HEP Objective: See F/S for therex Assessment: Ambulating with decreased WB on R Plan: Continue per POC Length of Time (minutes) of Treatment: 30 Minutes Procedure Charges Therapeutic Exercise 30 minutes: Yes
== END 2024-06-09 23:59 | disposition home or self-care (01) ==
LOC: CPTX 10:30
PROVIDERS: PCP Orthopaedic Surgery Adult Reconstructive Orthopaedic Surgery; Referring Provider Orthopaedic Surgery Adult Reconstructive Orthopaedic Surgery; Visit Provider Orthopaedic Surgery Adult Reconstructive Orthopaedic Surgery
DX: M25.561 Pain in right knee (principal); Z96.651 Presence of right artificial knee joint; I10 Essential (primary) hypertension
CPT/HCPCS: 97110; 97162

== ENCOUNTER 2024-06-17 13:31 | Outpatient (AMB) | payer MEDICAID, SELFPAY ==
--- NOTE | 2024-06-17 13:58 | PD.ORTHCLVIS ---
Vital signs 06/17/24 13:59 Height 1.42 m Height Method Measured Weight 87.77 kg Weight Measurement Method Standing Scale BMI 43.5 BP 133/81 H Blood Pressure Source Automatic Cuff Blood Pressure Location Left Upper Arm Position Sitting Respiration 18 Pulse 68 Pulse Source Monitor Temp 97.5 F Temp Source Temporal Artery Scan Pulse Oximetry (%) 96 Oxygen Delivery Method Room Air Med/Allergies Allergies & Medications Allergies No Known Allergies Allergy (Verified 06/17/24 14:01) Medication Reconciliation amlodipine 10 mg tablet 10 mg PO QDAY 02/01/24 [History Confirmed 06/17/24] losartan 100 mg-hydrochlorothiazide 25 mg tablet 1 tab PO QDAY 02/01/24 [History Confirmed 06/17/24] meloxicam 15 mg tablet 15 mg PO QDAY #60 tabs 02/01/24 [Rx Confirmed 06/17/24] carvedilol 3.125 mg tablet (Coreg) 3.125 mg PO BID 03/17/24 [History Confirmed 06/17/24] acetaminophen 500 mg tablet (Acetaminophen Extra Strength) 1,000 mg (2 x 500 mg) PO Q6H PRN pain #90 tabs 03/19/24 [Rx Confirmed 06/17/24] aspirin 81 mg tablet,delayed release 81 mg PO BID #60 tabs 03/19/24 [Rx Confirmed 06/17/24] doxycycline hyclate 100 mg tablet 100 mg PO BID #14 tabs 03/19/24 [Rx Confirmed 06/17/24] gabapentin 300 mg capsule 300 mg PO .qhs #30 caps 03/19/24 [Rx Confirmed 06/17/24] oxycodone 5 mg tablet 5 mg PO Q6H PRN pain #28 tabs 03/19/24 [Rx Confirmed 06/17/24] oxycodone 5 mg tablet 5 mg PO Q6H PRN pain #28 tabs 03/19/24 [Rx Confirmed 06/17/24] oxycodone 5 mg tablet 5 mg PO Q6H PRN pain #28 tabs 03/19/24 [Rx Confirmed 06/17/24] sennosides 8.6 mg-docusate sodium 50 mg tablet (Senna-S) 1 tab-cap PO QDAY #30 tabs 03/19/24 [Rx Confirmed 06/17/24] acetaminophen 500 mg tablet (Acetaminophen Extra Strength) 1,000 mg (2 x 500 mg) PO Q6H PRN pain #90 tabs 04/03/24 [Rx Confirmed 06/17/24] oxycodone 5 mg tablet 5 mg PO Q6H PRN pain #28 tabs 04/03/24 [Rx Confirmed 06/17/24] Exam Exam Patient is in no acute distress and is cooperative with the examination today. Breathing is nonlabored. In no respiratory distress. Bilateral extremities were evaluated and demonstrates sensation intact to light touch. Palpable pedal pulses are present. No significant edema is present. Bilateral hips were examined. The patient has no pain with log roll of the hips. Internal rotation to 30 degrees and external rotation to 30 degrees is painless. Negative FADIR. The left knee was examined. The left knee is in [varus] alignment. Range of motion from [0-115] degrees. Knee is stable to varus and valgus as well as AP translation with <5mm. Patient has a [negative] [place]. There is [no] pain with patellofemoral compression and [no] crepitus noted. The knee is [tender] to palpation [medially]. Right Knee incision is clean dry and intact xrays demonstrate a cementless total knee replacement in good alignment and position Assessment and Plan Problem List (1) Arthritis of both knees: Status: Acute Plan: 58-year-old female with bilateral knee pain and bilateral knee arthritis. She is status post right total knee replacement is doing well. Her pain is well-controlled. She would like to get surgery on her left knee which is starting affect her quality life and happiness. She has tried injections and anti-inflammatories as well as a home exercise program on the left The nature and purpose of the total knee replacement, alternative method(s) of treatment, the material risks involved, and the possibility of complications were fully explained to the patient. The patient does NOT have any of the following contraindications to TKA: - Active infection of the knee joint, OR - Active systemic bacteremia, OR - Active skin infection or open wound at surgical site, OR - Neuropathic arthritis, OR - Severe, rapidly progressive neurological disease, OR - Severe medical condition that makes risks of surgery outweigh the potential benefit The patient was told the most common risks and complications associated with a total knee replacement include, but are not limited to: blood clots in the leg, fatal pulmonary embolism, dislocation of the prosthesis, intraoperative and postoperative fractures of the femur or tibia, infection, failure of the prosthesis or grafting materials, complications from anesthesia, reactions to blood transfusions, postoperative leg length inequality, instability of the knee replacement, nerve damage or injury, vascular injury, delayed wound healing, infection, other injury or even . In addition, there are risks associated with anesthesia given during this operation. Also, the patient was told that after undergoing a total knee replacement there may still be persistent pain or disability. The patient was informed that the success of this operation in part depends upon the mechanical devices which are going to be implanted and that these devices can fail or malfunction, and may need to be repaired or replaced and there are no guarantees as to the longevity of this device or its parts and that it or its parts could fail prematurely. The patient was also notified that during the course of surgery, there may be a need to use bone graft from donors, and that any bone graft used will be carefully screened for communicable diseases, including AIDS, hepatitis, Celso-Creutzfeldt, or other diseases, but despite the screening procedures, there is a small chance that they could contract one of these diseases. Finally, the patient was asked to follow completely and fully with all advice and recommended treatments, and that recovery and ultimate outcome are affected by their compliance with recommended treatment. We discussed the risks, benefits and treatment alternatives, and the patient is interested in proceeding with surgery. We will try to set this up as expeditiously as possible. Office Procedures GNS Level of Care Nursing/Assessment Patient Status: Established Patient Nursing Assessment/Reassesment: Medication Reconciliation, Update PMH in EMR and Vital Signs Coordination of Care: Complex Care/Chronic Disease 5 or more, Education Complex Pt/Fam, Consent,records obtained, informed consent and Staff clarify orders Established Patient Charge Established Patient Point Assignment: 100 Established Patient Point Charge: EP Level 3 (80-115) VA Intake Visit Data Collection New Patient or Established: Established Patient (seen at [facility] within 3 years) Reason for Visit:: FOLLOW UP RIGHT TKA [place] Required: Yes Do You Feel Safe at Home: Yes Questionairres Past Medical History Past Medical History Have you ever been diagnosed with any of the following: Neurological Problems Seizures: No Cardiology Problems Congestive Heart Failure: No Hypertension: Yes Respiratory Problems Chronic Obstructive Pulmonary Disease (COPD): No Smoking: No Smoking Exposure: No Stomache/Intestinal Problems Hepatitis: No Obesity: Yes Genital/Urinary Problems Renal Disease: No Kidney Stones: No Reproductive Problems Previous Pregnancies: Yes Musculoskeletal Problems Arthritis: Yes Endocrine Problems Diabetes Mellitus Type 1: No Diabetes Mellitus Type 2: No Other Problems Hospitalization: No Shingles: No Falls: No Blood Transfusions: No Blood Transfusion Reaction: No Anesthesia Reactions: No Cancer: No Surgical History Total Knee Replacement: Yes (RIGHT TKA ) Subjective Visit Visit for: post op #1 Immunization / Flu Flu Vaccine in the Last 12 Months: Yes Flu Vaccine Exclusion Criteria: Already Received History of Present Illness Chief complaint: FOLLOW UP RIGHT TKA Patient is doing well status post right total knee replacement. She has minimal pain and swelling. She is doing well and is losing weight Personal History BMI Counceling provided: Yes Pain Pain level (0-10): 6 Pain duration: INTERMITTENT Pain location: inside (medial), outside (lateral) and anterior Pain quality: burning Associated signs & symptoms: stiffness Ambulatory data Ambulatory device: cane Treatments Improvement with previous injections: Yes Improvement with PT: No Improvement with NSAIDS: no Review of Systems Review of Systems: All systems negative unless otherwise noted in HPI.
[2024-06-17 13:59] VITALS: BP 133/81; PULSE 68; RESP 18; TEMP 36.4; O2SAT 96; BMI 43.5
== END 2024-06-17 14:18 | disposition home or self-care (01) ==
LOC: HODSRG 13:31
PROVIDERS: PCP Family Medicine; Referring Provider Family Medicine; Supervising Provider Orthopaedic Surgery Adult Reconstructive Orthopaedic Surgery; Visit Provider Orthopaedic Surgery Adult Reconstructive Orthopaedic Surgery
DX: M17.0 Bilateral primary osteoarthritis of knee (principal); M25.562 Pain in left knee; M25.561 Pain in right knee; Z96.651 Presence of right artificial knee joint; I10 Essential (primary) hypertension
CPT/HCPCS: 99213; G0463

== ENCOUNTER 2024-06-25 10:30 | Outpatient (RCR) | payer MEDICAID, SELFPAY ==
--- NOTE | 2024-06-10 11:10 | PT.ODAYNRPT ---
PT Outpatient Daily Note OP Daily Note Outpatient Physical Therapy Treatment Date: 06/10/24 Visit Reasons: RT tka Subjective: Ambulating with cane and doing HEP Objective: See F/S for therex MT: PROM into flexion x7' with overpressure Assessment: Ambulating with decreased WB on R. PROM into flexion 112 deg with overpressure. Plan: Continue per POC Length of Time (minutes) of Treatment: 30 Minutes Procedure Charges Therapeutic Exercise 30 minutes: Yes
--- NOTE | 2024-06-12 17:15 | PT.ODAYNRPT ---
PT Outpatient Daily Note OP Daily Note Outpatient Physical Therapy Treatment Date: 06/12/24 Visit Reasons: RT tka Subjective: Ambulating with cane and doing HEP Objective: See F/S for therex MT: PROM into flexion x7' with overpressure Assessment: Ambulating with decreased WB on R. PROM into flexion has improved to about 112 deg with overpressure and pain at end-range. Plan: Continue per POC Length of Time (minutes) of Treatment: 30 Minutes Procedure Charges Therapeutic Exercise 30 minutes: Yes
--- NOTE | 2024-06-17 11:39 | PTNOTE_ITS ---
PT Outpatient Daily Note OP Daily Note Outpatient Physical Therapy Treatment Date: 06/17/24 Visit Reasons: RT tka Subjective: Pt reports R knee is doing better, notices she can tolerate doing activities a little more now. Objective: Please see flow sheet for ther ex list. Assessment: Pt continues to ambulate with antalgic gait, working on improving ROm to strengt h to work towards normalizing gait. Plan: Continue with POC. Length of Time (minutes) of Treatment: 30 Minutes Procedure Charges Therapeutic Exercise 30 minutes: Yes
--- NOTE | 2024-06-19 12:01 | PT.ODAYNRPT ---
PT Outpatient Daily Note OP Daily Note Outpatient Physical Therapy Treatment Date: 06/19/24 Visit Reasons: RT tka Subjective: Overall better strength and less pain of R knee but L knee is hurting. Objective: See F/S for therex Assessment: Improved WB tolerance with less pain of R knee but L knee is limiting gait and therex tolerance. Plan: Reassess Length of Time (minutes) of Treatment: 30 Minutes Procedure Charges Therapeutic Exercise 30 minutes: Yes
--- NOTE | 2024-06-25 11:05 | PT.ODS1RPT ---
PT OP Progress/Discharge Note Date of Service: 06/25/24 Progress Note/DC Note Progress Note/Discharge Note: Progress Note Patient Information Visit Reasons: RT tka Service Continue Service or Discharge: Continue Service Status Subjective: Overall better strength and less pain of R knee Objective: See F/S for therex R knee AROM: Extension: full Flexion: 105 deg PROM: 113 PROM Strength: Quads: 4/5 HS: 4/5 Gait: decreased WB on R Assessment: Pt has attended 02/20 authorized visits with good progress with therapy goals. PROM into flexion has improved to more than the 110 deg goal. Pt has improved WB tolerance with less pain of R knee but gait pattern is antalgic. Pt would benefit from continued therapy to improve gait pattern and WB tolerance. Plan: Request additional authorization x6 visits to complete the 18 on the POC Procedure Charges Therapeutic Exercise 30 minutes: Yes
== END 2024-07-09 23:59 | disposition home or self-care (01) ==
LOC: CPTX 10:30
PROVIDERS: PCP Orthopaedic Surgery Adult Reconstructive Orthopaedic Surgery; Referring Provider Orthopaedic Surgery Adult Reconstructive Orthopaedic Surgery; Visit Provider Orthopaedic Surgery Adult Reconstructive Orthopaedic Surgery
DX: M25.561 Pain in right knee (principal); Z96.651 Presence of right artificial knee joint; I10 Essential (primary) hypertension
CPT/HCPCS: 97110

== ENCOUNTER 2024-07-28 10:00 | Outpatient (RCR) | payer MEDICAID, SELFPAY ==
--- NOTE | 2024-07-10 11:24 | PT.ODAYNRPT ---
PT Outpatient Daily Note OP Daily Note Outpatient Physical Therapy Treatment Date: 07/10/24 Visit Reasons: RT TKA Subjective: Pt reports R knee is doing better, notices flexibility is improving. Pt shared she continues to use the cane due to L LE, pt will likely be having knee replacement on L side in a few months. Objective: Please see flow sheet for ther ex list. Assessment: Pt ROM continues to improve. Focus on restoring functional strength on R LE. Plan: Continue with pOC. Length of Time (minutes) of Treatment: 30 Minutes Procedure Charges Therapeutic Exercise 30 minutes: Yes
--- NOTE | 2024-07-16 11:06 | PT.ODAYNRPT ---
PT Outpatient Daily Note OP Daily Note Outpatient Physical Therapy Treatment Date: 07/16/24 Visit Reasons: RT TKA Subjective: Pt reports R knee is doing better, notices flexibility is improving. Pt shared she continues to use the cane due to L LE, pt will likely be having knee replacement on L side in a few months. Objective: See F/S for therex Assessment: Pt has better WB on R LE than the L. She ambulates with straight L LE due to pain. Plan: Continue per POC. Length of Time (minutes) of Treatment: 30 Minutes Procedure Charges Therapeutic Exercise 30 minutes: Yes
--- NOTE | 2024-07-21 14:06 | PT.ODAYNRPT ---
PT Outpatient Daily Note OP Daily Note Outpatient Physical Therapy Treatment Date: 07/21/24 Visit Reasons: RT TKA Subjective: Pt reports R knee is doing better, notices flexibility is improving. Pt shared she continues to use the cane due to L LE, pt will likely be having knee replacement on L side in a few months. Objective: See F/S for therex Assessment: Pt has better WB on R LE than the L. She ambulates with straight L LE due to pain. Plan: Continue per POC. Length of Time (minutes) of Treatment: 30 Minutes Procedure Charges Therapeutic Exercise 30 minutes: Yes
--- NOTE | 2024-07-24 10:34 | PT.ODAYNRPT ---
PT Outpatient Daily Note OP Daily Note Outpatient Physical Therapy Treatment Date: 07/24/24 Visit Reasons: RT TKA Subjective: Pt reports R knee is doing better lately, continues to use cane because of her L knee. Objective: Please see flow sheet for ther ex list. Assessment: ROM of R knee continues to improve indicating progress. Plan: Continue with pOC. Length of Time (minutes) of Treatment: 30 Minutes Procedure Charges Therapeutic Exercise 30 minutes: Yes
--- NOTE | 2024-07-28 14:26 | PT.ODAYNRPT ---
PT Outpatient Daily Note OP Daily Note Outpatient Physical Therapy Treatment Date: 07/28/24 Visit Reasons: RT TKA Subjective: Pt reports R knee is doing better, notices flexibility is improving. Pt shared she continues to use the cane due to L LE, pt will likely be having knee replacement on L side in a few months. Objective: See F/S for therex Assessment: Pt has better WB on R LE than the L. She ambulates with straight L LE due to pain. Plan: Reassess Length of Time (minutes) of Treatment: 30 Minutes Procedure Charges Therapeutic Exercise 30 minutes: Yes
== END 2024-08-09 23:59 | disposition home or self-care (01) ==
LOC: CPTX 10:00
PROVIDERS: PCP Orthopaedic Surgery Adult Reconstructive Orthopaedic Surgery; Referring Provider Orthopaedic Surgery Adult Reconstructive Orthopaedic Surgery; Visit Provider Orthopaedic Surgery Adult Reconstructive Orthopaedic Surgery
DX: M25.561 Pain in right knee (principal); Z96.651 Presence of right artificial knee joint; I10 Essential (primary) hypertension
CPT/HCPCS: 97110

== ENCOUNTER 2024-08-11 09:47 | Outpatient (RCR) | payer MEDICAID, SELFPAY ==
--- NOTE | 2024-08-11 18:20 | PT.ODS1RPT ---
PT OP Progress/Discharge Note Date of Service: 08/11/24 Progress Note/DC Note Progress Note/Discharge Note: DC Note Patient Information Visit Reasons: RT TKA Service Continue Service or Discharge: Discharge Discharge Date: 08/11/24 Status Subjective: Overall better strength and less pain of R knee but L knee hurts with most activities Objective: See F/S for therex R knee AROM: Extension: full Flexion: 103 deg PROM: 112 PROM Strength: Quads: 4/5 HS: 4/5 Gait: symmetrical WB on R Assessment: Pt has attended authorized visits with good progress with therapy goals. PROM into flexion has improved to more than the 110 deg goal. Pt has improved WB tolerance with less pain of R knee and but gait pattern is antalgic due to L knee pain. Plan: D/C with HEP Procedure Charges Therapeutic Exercise 30 minutes: Yes
== END 2024-09-08 23:59 | disposition home or self-care (01) ==
LOC: CPTX 09:47
PROVIDERS: PCP Orthopaedic Surgery Adult Reconstructive Orthopaedic Surgery; Referring Provider Orthopaedic Surgery Adult Reconstructive Orthopaedic Surgery; Visit Provider Orthopaedic Surgery Adult Reconstructive Orthopaedic Surgery
DX: M25.561 Pain in right knee (principal); Z96.651 Presence of right artificial knee joint; I10 Essential (primary) hypertension
CPT/HCPCS: 97110

== ENCOUNTER 2024-08-26 13:46 | Outpatient (AMB) | payer MEDICAID, SELFPAY ==
--- NOTE | 2024-08-26 14:54 | PD.ORTHCLVIS ---
Vital signs 08/26/24 14:55 Height 1.42 m Height Method Stated Weight 90.492 kg Weight Measurement Method Standing Scale BMI 44.9 BP 103/55 L Blood Pressure Source Automatic Cuff Blood Pressure Location Right Upper Arm Position Sitting Respiration 18 Pulse 70 Pulse Source Monitor Temp 98.2 F Temp Source Temporal Artery Scan Pulse Oximetry (%) 97 Oxygen Delivery Method Room Air Med/Allergies Allergies & Medications Allergies No Known Allergies Allergy (Verified 08/26/24 14:55) Medication Reconciliation amlodipine 10 mg tablet 10 mg PO QDAY 02/01/24 [History Confirmed 08/26/24] losartan 100 mg-hydrochlorothiazide 25 mg tablet 1 tab PO QDAY 02/01/24 [History Confirmed 08/26/24] meloxicam 15 mg tablet 15 mg PO QDAY #60 tabs 02/01/24 [Rx Confirmed 08/26/24] carvedilol 3.125 mg tablet (Coreg) 3.125 mg PO BID 03/17/24 [History Confirmed 08/26/24] acetaminophen 500 mg tablet (Acetaminophen Extra Strength) 1,000 mg (2 x 500 mg) PO Q6H PRN pain #90 tabs 03/19/24 [Rx Confirmed 08/26/24] aspirin 81 mg tablet,delayed release 81 mg PO BID #60 tabs 03/19/24 [Rx Confirmed 08/26/24] doxycycline hyclate 100 mg tablet 100 mg PO BID #14 tabs 03/19/24 [Rx Confirmed 08/26/24] gabapentin 300 mg capsule 300 mg PO .qhs #30 caps 03/19/24 [Rx Confirmed 08/26/24] oxycodone 5 mg tablet 5 mg PO Q6H PRN pain #28 tabs 03/19/24 [Rx Confirmed 08/26/24] oxycodone 5 mg tablet 5 mg PO Q6H PRN pain #28 tabs 03/19/24 [Rx Confirmed 08/26/24] oxycodone 5 mg tablet 5 mg PO Q6H PRN pain #28 tabs 03/19/24 [Rx Confirmed 08/26/24] sennosides 8.6 mg-docusate sodium 50 mg tablet (Senna-S) 1 tab-cap PO QDAY #30 tabs 03/19/24 [Rx Confirmed 08/26/24] acetaminophen 500 mg tablet (Acetaminophen Extra Strength) 1,000 mg (2 x 500 mg) PO Q6H PRN pain #90 tabs 04/03/24 [Rx Confirmed 08/26/24] oxycodone 5 mg tablet 5 mg PO Q6H PRN pain #28 tabs 04/03/24 [Rx Confirmed 08/26/24] Exam Exam Patient is in no acute distress and is cooperative with the examination today. Breathing is nonlabored. In no respiratory distress. Bilateral extremities were evaluated and demonstrates sensation intact to light touch. Palpable pedal pulses are present. No significant edema is present. Bilateral hips were examined. The patient has no pain with log roll of the hips. Internal rotation to 30 degrees and external rotation to 30 degrees is painless. Negative FADIR. The left knee was examined. The left knee is in [varus] alignment. Range of motion from [0-115] degrees. Knee is stable to varus and valgus as well as AP translation with <5mm. Patient has a [negative] McMurrays. There is [no] pain with patellofemoral compression and [no] crepitus noted. The knee is [tender] to palpation [medially]. Right Knee incision is clean dry and intact xrays demonstrate a cementless total knee replacement in good alignment and position Assessment and Plan Problem List (1) Arthritis of both knees: Status: Acute Plan: 58-year-old female with bilateral knee pain and bilateral knee arthritis. She is status post right total knee replacement is doing well. Her pain is well-controlled. She would like to get surgery on her left knee which is starting affect her quality life and happiness. She has tried injections and anti-inflammatories as well as a home exercise program on the left The nature and purpose of the total knee replacement, alternative method(s) of treatment, the material risks involved, and the possibility of complications were fully explained to the patient. The patient does NOT have any of the following contraindications to TKA: - Active infection of the knee joint, OR - Active systemic bacteremia, OR - Active skin infection or open wound at surgical site, OR - Neuropathic arthritis, OR - Severe, rapidly progressive neurological disease, OR - Severe medical condition that makes risks of surgery outweigh the potential benefit The patient was told the most common risks and complications associated with a total knee replacement include, but are not limited to: blood clots in the leg, fatal pulmonary embolism, dislocation of the prosthesis, intraoperative and postoperative fractures of the femur or tibia, infection, failure of the prosthesis or grafting materials, complications from anesthesia, reactions to blood transfusions, postoperative leg length inequality, instability of the knee replacement, nerve damage or injury, vascular injury, delayed wound healing, infection, other injury or even . In addition, there are risks associated with anesthesia given during this operation. Also, the patient was told that after undergoing a total knee replacement there may still be persistent pain or disability. The patient was informed that the success of this operation in part depends upon the mechanical devices which are going to be implanted and that these devices can fail or malfunction, and may need to be repaired or replaced and there are no guarantees as to the longevity of this device or its parts and that it or its parts could fail prematurely. The patient was also notified that during the course of surgery, there may be a need to use bone graft from donors, and that any bone graft used will be carefully screened for communicable diseases, including AIDS, hepatitis, Celso-Creutzfeldt, or other diseases, but despite the screening procedures, there is a small chance that they could contract one of these diseases. Finally, the patient was asked to follow completely and fully with all advice and recommended treatments, and that recovery and ultimate outcome are affected by their compliance with recommended treatment. We discussed the risks, benefits and treatment alternatives, and the patient is interested in proceeding with surgery. We will try to set this up as expeditiously as possible. Office Procedures GNS Level of Care Nursing/Assessment Patient Status: Established Patient Nursing Assessment/Reassesment: Medication Reconciliation, Update PMH in EMR and Vital Signs Coordination of Care: Complex Care and Chronic Disease 1-5, Education Complex Pt/Fam, Consent,records obtained, informed consent, Lab and Imaging orders, Results/Orders obtained and Staff clarify orders Special Needs: Language special needs Established Patient Charge Established Patient Point Assignment: 110 Established Patient Point Charge: EP Level 3 (80-115) MA Intake Visit Data Collection New Patient or Established: Established Patient (seen at [facility] within 3 years) Reason for Visit:: PRE-OP LEFT TKA Seen by Clinical Staff ONLY (RN/MA): No Verbal consent obtained for Telemed visit?: No 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 PCP or OBGYN visit in last 3 months: Yes Hx Now: No Do You Feel Safe at Home: Yes Authorities Contacted: N/A Questionairres Past Medical History Past Medical History Have you ever been diagnosed with any of the following: Neurological Problems Seizures: No Cardiology Problems Congestive Heart Failure: No Hypertension: Yes Respiratory Problems Chronic Obstructive Pulmonary Disease (COPD): No Smoking: No Smoking Exposure: No Stomache/Intestinal Problems Hepatitis: No Obesity: Yes Genital/Urinary Problems Renal Disease: No Kidney Stones: No Reproductive Problems Previous Pregnancies: Yes Musculoskeletal Problems Arthritis: Yes Endocrine Problems Diabetes Mellitus Type 1: No Diabetes Mellitus Type 2: No Other Problems Hospitalization: No Shingles: No Falls: No Blood Transfusions: No Blood Transfusion Reaction: No Anesthesia Reactions: No Cancer: No Surgical History Total Knee Replacement: Yes (RIGHT TKA ) Subjective Visit Visit for: follow up visit and knee Immunization / Flu Flu Vaccine in the Last 12 Months: No Flu Vaccine Exclusion Criteria: No Exclusion Criteria History of Present Illness Chief complaint: PRE-OP LEFT TKA Date of 1st surgery (if applicable): 08/26/2024 Patient is doing well status post right total knee replacement. She has minimal pain and swelling. She is doing well and is losing weight Personal History Occupation: DISABLED Red flag PMH: BMI BMI Counceling provided: Yes Pain Pain level (0-10): 5 Pain duration: INTERMITTENT Pain location: inside (medial), outside (lateral) and anterior Pain quality: burning Associated signs & symptoms: stiffness Ambulatory data Ambulatory device: none Treatments Improvement with previous injections: No Improvement with PT: No Improvement with NSAIDS: no Review of Systems Review of Systems: All systems negative unless otherwise noted in HPI.
[2024-08-26 14:55] VITALS: BP 103/55; PULSE 70; RESP 18; TEMP 36.8; O2SAT 97; BMI 44.9
== END 2024-08-26 15:02 | disposition home or self-care (01) ==
LOC: HODSRG 13:46
PROVIDERS: PCP Family Medicine; Referring Provider Family Medicine; Supervising Provider Orthopaedic Surgery Adult Reconstructive Orthopaedic Surgery; Visit Provider Orthopaedic Surgery Adult Reconstructive Orthopaedic Surgery
DX: M17.0 Bilateral primary osteoarthritis of knee (principal); M25.562 Pain in left knee; M25.561 Pain in right knee; Z96.651 Presence of right artificial knee joint; I10 Essential (primary) hypertension
CPT/HCPCS: 99213; G0463

== ENCOUNTER → 2024-09-02 | Outpatient (CLI) | payer MEDICAID, SELFPAY ==
--- NOTE | 2024-09-02 12:00 | XR_ITS ---
Examination: CT left lower extremity, without contrast. 2-D sagittal reconstructions. 2-D coronal reconstructions. 3-D reconstructions. Date and time of exam:September 02, 2024 1217 hours INDICATIONS: Diagnosis unilateral primary osteoarthritis left knee, left knee pain 2 years CTDI: vol (mGy):14.6 DLP: (mGycm):901 Technique: Multiple 1.25 mm axial sections of the left lower extremity without intravenous contrast have been obtained. 2-D sagittal and coronal reconstructions have been obtained. 3-D reconstructions have been obtained. Low dose protocols were performed. One or more of the following dose reduction techniques were used; automated exposure control, adjustment of the mA and/or KV according to patient size, use of iterative reconstruction technique. Findings: Significant osteopenia Moderate narrowing left hip joint No left hip fracture or dislocation No avascular necrosis Advanced left knee tricompartment osteoarthritis Severe narrowing medial joint space No fracture IMPRESSION: Advanced tricompartment osteoarthritis left knee
== END | disposition home or self-care (01) ==
PROVIDERS: PCP Internal Medicine; Referring Provider Orthopaedic Surgery Adult Reconstructive Orthopaedic Surgery; Visit Provider Orthopaedic Surgery Adult Reconstructive Orthopaedic Surgery
DX: M17.12 Unilateral primary osteoarthritis, left knee (principal)
CPT/HCPCS: 73700

== ENCOUNTER 2024-09-05 21:28 | Emergency (ER) | payer MEDICAID, SELFPAY ==
[2024-09-05 21:29] VITALS: BMI 40.1
[2024-09-05 21:42] VITALS: BP 153/82; PULSE 81; RESP 16; TEMP 36.8; O2SAT 95
[2024-09-05] MEDS: cephALEXin 250 MG CAPSULE 500 MG PO (22:26)
--- NOTE | 2024-09-05 22:52 | EDNOTE_ITS ---
<Statement entered by Heather Cordon MD - 09/05/24 23:26> As co-signing physician, I was present and available for consult prn. I concur with the plan and care as documented by the midlevel provider. ED Skin Abcess FB-RME/HPI General Chief complaint: Ankle/Foot Injury Stated complaint: R GREAT TOE RED SWOLLEN PAINFUL Time Seen by Provider: 09/05/24 21:58 Arrival date/time: 09/05/24 21:28 59F with history of HTN presents to ED with 1 week of worsening around R big toe ingrown toenail. Limitations: no limitations Related Data Home Medications ?Medication ?Instructions ?Recorded ?Confirmed amlodipine 10 mg tablet 10 mg PO QDAY 02/01/2408/26 losartan 100 1 tab PO QDAY 02/01/2408/26 mg-hydrochlorothiazide 25 mg tablet carvedilol 3.125 mg tablet (Coreg) 3.125 mg PO BID 09/0308/26/24 Previous Rx's ?Medication ?Instructions ?Recorded meloxicam 15 mg tablet 15 mg PO QDAY #60 tabs 01/31 acetaminophen 500 mg tablet 1,000 mg (2 x 500 mg) PO Q 6H PRN 03/19/24 (Acetaminophen Extra Strength) pain #90 tabs aspirin 81 mg tablet,delayed 81 mg PO BID #60 tabs 11/03 release doxycycline hyclate 100 mg tablet 100 mg PO BID #14 ta bs 03/19/24 gabapentin 300 mg capsule 300 mg PO .qhs #30 caps 11/03 oxycodone 5 mg tablet 5 mg PO Q6H PRN pain #28 tab s 03/19/24 oxycodone 5 mg tablet 5 mg PO Q6H PRN pain #28 tab s 03/19/24 oxycodone 5 mg tablet 5 mg PO Q6H PRN pain #28 tab s 03/19/24 sennosides 8.6 mg-docusate sodium 1 tab-cap PO QDAY #3 0 tabs 03/19/24 50 mg tablet (Senna-S) acetaminophen 500 mg tablet 1,000 mg (2 x 500 mg) PO Q 6H PRN 04/03/24 (Acetaminophen Extra Strength) pain #90 tabs oxycodone 5 mg tablet 5 mg PO Q6H PRN pain #28 tab s 04/03/24 cephalexin 750 mg capsule 750 mg PO BID 7 days #14 cap s 09/05/24 Allergies Allergy/AdvReac Type Severity Reaction Status Date / Time No Known Allergies Allergy Verified 09/05/24 21:33 Review of Systems Review of Systems Systems Reviewed: All systems reviewed, normal except as documented Constitutional Constitutional: Reports system reviewed and no additional complaints, except as documented, Denies fever(s) and Denies headache(s) ENT Ears, Nose, Mouth, and Throat: Denies disequilibrium and Denies headache(s) Cardiovascular Cardiovascular: Reports system reviewed and no additional complaints, except as documented, Denies chest pain and Denies dyspnea Respiratory Respiratory: Reports system reviewed and no additional complaints, except as documented, Denies cough and Denies dyspnea Gastrointestinal Gastrointestinal: Reports system reviewed and no additional complaints, except as documented, Denies abdominal pain, Denies nausea and Denies vomiting Integumentary/Breasts Skin/Breast: Reports as per HPI, Reports skin pain and Reports skin swelling Neurologic Neurologic: Reports system reviewed and no additional complaints, except as documented, Denies confusion, Denies disequilibrium and Denies headache(s) Psychiatric Psychiatric: Denies confusion Past Medical History Past Medical History NEUROLOGIC: Negative Neurological Disorders or Seizures CARDIAC: Positive Cardiac Disorders (Syncope x2) and Hypertension; Negative Congestive Heart Failure RESPIRATORY: Negative Chronic Obstructive Pulmonary Disease (COPD), Smoking or Smoking Exposure GASTROINTESTINAL: Positive Gastrointestinal Disorders and Obesity; Negative Hepatitis GENITOURINARY: Negative Genitourinary Disorders, Renal Disease or Kidney Stones REPRODUCTIVE: Positive Previous Pregnancies MUSCULOSKELETAL: Positive Musculoskeletal Disorders and Arthritis ENDOCRINE: Negative Endocrine Disorders, Diabetes Mellitus Type 1 or Diabetes Mellitus Type 2 HEMATOLOGIC: Negative Blood Disorders OTHER HISTORY: Negative Hospitalization, Autoimmune Disease, Shingles, Falls, Blood Transfusions, Blood Transfusion Reaction, Anesthesia Reactions or Cancer Family History FAMILY HISTORY: Positive Family Cardiac Disorders; Negative Family Psychiatric Problems, Family Respiratory Disorders, Family Gastrointestinal Problems, Family Cancer, Family Surgery or Family Anesthesia Reaction Surgical History SURGICAL: Positive Abdominal Surgery Social History SMOKING STATUS: Never smoker ED Exam General Limitations: Present no limitations General appearance: Present alert and in no apparent distress Head Head exam: Present atraumatic Eye Eye exam: Present normal appearance, PERRL and EOMI ENT ENT exam: Present normal exam, normal oropharynx and mucous membranes moist Neck Neck exam: Present normal inspection, full ROM and trachea midline Chest Chest inspection: Present normal inspection and symmetric chest wall rise Respiratory Respiratory exam: Present normal lung sounds bilaterally Cardiovascular Cardiovascular exam: Present regular rate, normal rhythm and normal heart sounds Abdominal Exam Abdominal exam: Present soft and normal bowel sounds Extremities Exam Extremities exam: Present full ROM Expanded Lower Extremity Exam Foot/toe exam: Present full ROM (R big toe), tenderness, swelling and erythema Back Exam Back exam: Present normal inspection and full ROM Neurological Exam Neurological exam: Present alert, oriented X3 and CN II-XII intact Psychiatric Psychiatric exam: Present normal affect and normal mood Skin Skin exam: Present warm, dry, intact and normal color Course Quality Measures none Orders Category Date Time Status cephALEXin [Keflex] Med 09/05/24 21:59 Discontinued 500 mg PO X1 ONE Vital Signs Vital signs: Vital Signs Temperature 98.2 F 09/05/24 21:42 Pulse Rate 81 09/05/24 21:42 Respiratory Rate 16 09/05/24 21:42 Blood Pressure 153/82 H 09/05/24 21:42 Pulse Oximetry (%) 95 09/05/24 21:42 Oxygen Delivery Method Room Air 09/05/24 21:42 O2 at 95% on RA and WNLs Skin / Abscess / Foreign Body MDM Narrative MDM Narrative:: 59F with history of HTN presents to ED with 1 week of worsening around R big toe ingrown toenail. Physical exam reveals redness, swelling and tenderness around R big toe. No area of fluctuance of purulence. ROM intact. Patient is afebrile, calm, and alert. Likely cellulitis 2/2 to ingrown toenail. Meds and peer financial counselor given. Patient data External records reviewed:: [facility] previous records Clinical information provided by:: patient Social determinants that could affect healthcare access:: none Patient has the following chronic illnesses:: HTN How is presenting disease/condition affected by chronic disease/condition?: uneffected by Evaluation data The following diagnostics were reviewed and interpreted by me:: other (specify) (none) Lab and/or radiology exams considered but not ordered:: not ordered Interpretation Summary: n/a Medications / Prescriptions Medications or Prescriptions considered but not ordered:: ordered Medication administrations:: Medication Administration History Discontinued Medications Cephalexin HCl (Cephalexin 250 Mg Capsule) 500 mg PO X1 ONE Stop: 09/05/24 22:00 Last Admin: 09/05/24 22:26 Dose: 500 mg Documented By: SILVER above Consultations Consultation(s) initiated? (list below): No Diagnosis Skin/Abscess Differential Diagnosis: abscess of skin or subcutaneous tissue, viral exanthem, dermatophytosis, urticaria, herpes zoster, allergic reaction to drug, cellulitis, eczema, insect bites, impetigo and contact dermatitis Most likely diagnosis given after review of the tests above:: cellulitis Admission Indicated Admission indicated?: not indicated Admission Request Was there a request for admission?: No Disposition Plan Disposition Plan: Discharge Discharge Attestation Discharge Attestation: The patient and all family members were given an opportunity to ask questions and understood the discharge instructions. Discharge instructions specifically effects, indications for sooner follow up or return to the emergency department, and the expected course of current diagnosis. Patient condition: Stable Discharge Plan Plan Patient Disposition: HOME (Self Care) Discharge Disposition comment: Stable Prescriptions/Referrals Prescriptions/Med Rec: New cephalexin 750 mg capsule 750 mg PO BID 7 Days Qty: 14 0RF No Action losartan-hydrochlorothiazide 100-25 mg tablet 1 tab PO QDAY amlodipine 10 mg tablet 10 mg PO QDAY meloxicam 15 mg tablet 15 mg PO QDAY Qty: 60 0RF carvedilol [Coreg] 3.125 mg Tablet 3.125 mg PO BID Rx Instructions: must administer with a meal/food sennosides-docusate sodium [Senna-S] 8.6-50 mg tablet 1 tab-cap PO QDAY Qty: 30 0RF aspirin 81 mg tablet,delayed release (DR/EC) 81 mg PO BID Qty: 60 0RF acetaminophen [Acetaminophen Extra Strength] 500 mg tablet 1,000 mg PO Q6H MDD 1000mg PRN (Reason: pain) Qty: 90 0RF gabapentin 300 mg capsule 300 mg PO .qhs Qty: 30 0RF doxycycline hyclate 100 mg tablet 100 mg PO BID Qty: 14 0RF oxycodone 5 mg tablet 5 mg PO Q6H MDD 40 PRN (Reason: pain) Qty: 28 0RF oxycodone 5 mg tablet 5 mg PO Q6H MDD 40 PRN (Reason: pain) Qty: 28 0RF Rx Instructions: Z96.653 oxycodone 5 mg tablet 5 mg PO Q6H MDD 20 PRN (Reason: pain) Qty: 28 0RF Rx Instructions: Z96.653 acetaminophen [Acetaminophen Extra Strength] 500 mg tablet 1,000 mg PO Q6H MDD 1000mg PRN (Reason: pain) Qty: 90 0RF oxycodone 5 mg tablet 5 mg PO Q6H MDD 20 PRN (Reason: pain) Qty: 28 0RF Problem List Clinical Impression: Cellulitis, Ingrown nail of great toe Patient/Caregiver Discharge Instructions Education Materials: ED Toenail Ingrown Infec Abx Onl Additional Instructions: Please follow-up with PCP within 24-48 hours and return immediately if symptoms worsen. Can see textile conservator about fixing ingrown toenail. Print Language: Armenian Stand Alone Forms: Patient Portal Info Letter PA/DRUG ABUSE TECHNICIAN Supervising Physician PA/DRUG ABUSE TECHNICIAN Supervising Physician: Dr. Cordon
== END 2024-09-05 22:29 | disposition home or self-care (01) ==
LOC: SERX 22:41
PROVIDERS: Emergency Provider Emergency Medicine; PCP Internal Medicine
DX: L60.0 Ingrowing nail (principal); L03.031 Cellulitis of right toe
CPT/HCPCS: 99282; A9270

== ENCOUNTER 2024-09-15 07:05 | Day surgery (SDC) | payer MEDICAID, SELFPAY ==
--- NOTE | 2024-09-10 10:35 | EKG_ITS ---
[facility] Test Date: 2024-09-10 Pat Name: JUDSON Forrestpart[place]: Room: - Gender: Female Applications Administrator: OPAL : 1965 Requested By: Reinier Giraldo Order Number: [id number] Reading MD: Reinier Giraldo Measurements Intervals [place] Rate: 60 P: 48 WA: 170 QRS: 11 QRSD: 94 T: 50 QT: 413 QTc: 415 Interpretive Statements SINUS RHYTHM No previous ECG available for comparison /store/S0/[id number]
[2024-09-10 10:42] VITALS: BMI 41.4
[2024-09-10 12:18] LABS: Basophils # (Auto) 0.0 Thou/mm3 (0.0-0.2); Basophils % (Auto) 0 % (0-2.5); Eosinophils # (Auto) 0.1 Thou/mm3 (0.0-0.5); Eosinophils % (Auto) 2 % (0-10); Hematocrit 35.9 % (36.0-46.0); Hemoglobin 12.8 g/dL (12.0-16.0); Immature Granulocytes Auto 0.02 Thou/mm3 (0.00-0.00); Lymphocytes # (Auto) 3.1 Thou/mm3 (1.0-4.8); Lymphocytes % (Auto) 41 % (10-50); Mean Corpuscular HGB Conc 35.7 g/dl (31.0-37.0); Mean Corpuscular Hemoglobin 33.5 pg (25.0-35.0); Mean Corpuscular Volume 94 fL (80-100); Monocytes # (Auto) 0.4 Thou/mm3 (0.0-0.8); Monocytes % (Auto) 5 % (0-12); Neutrophils # (Auto) 3.8 Thou/mm3 (1.8-7.7); Neutrophils % (Auto) 52 % (37-80); Nucleated Red Blood Cell # 0.00 Thou/mm3 (0.00-0.00); Nucleated Red Blood Cell % 0 /100 WBC (0); Platelet Count 256 Thou/mm3 (140-440); RDW Standard Deviation 43.8 fL (36.4-46.3); Red Blood Count 3.82 Miln/mm3 (4.00-5.20); White Blood Count 7.4 Thou/mm3 (3.6-11.0)
[2024-09-10 12:24] LABS: INR 1.1 (0.9-1.3); Partial Thromboplastin Time 27.6 Seconds (22.0-36.0); Prothrombin Time 11.9 Seconds (9.0-12.2)
[2024-09-10 12:39] LABS: Alanine Aminotransferase 19 U/L (10-49); Albumin, Serum 4.5 gm/dL (3.4-4.8); Albumin/Globulin Ratio 1.6 (1.2-2.2); Alkaline Phosphatase 87 U/L (46-116); Anion Gap 6 (7-16); Aspartate Amino Transferase 31 U/L (0-34); BUN/Creatinine Ratio 22 Ratio (12-20); Bilirubin,Total 0.7 mg/dL (0.3-1.2); Blood Urea Nitrogen 22 mg/dL (9-23); Calcium 9.4 mg/dL (8.3-10.6); Calcium (Corrected) 9.4 mg/dL (8.5-10.1); Carbon Dioxide 26.9 mMol/L (20.0-31.0); Chloride 109 mMol/L (98-107); Creatinine (Component) 1.0 mg/dL (0.6-1.3); Estimated Creatinine Clearance 57.0 mL/min (>60); Globulin 2.8 gm/dL (2.3-3.5); Glucose 102 mg/dL (74-106); Osmolality,Calculated 286 (275-295); Potassium 3.9 mMol/L (3.4-5.1); Sodium 142 mMol/L (136-145); Total Protein 7.3 gm/dL (5.7-8.2); eGFR > 60 See Note
--- NOTE | 2024-09-11 12:53 | SUR.PREOP ---
Pt's daughter Sharlene notified to bring pt at 0700 on Sunday.
[2024-09-15] VITALS (12 sets, daily range): BP systolic 131–157; BP diastolic 57–94; PULSE 65–79; RESP 13–27; TEMP 36.6–36.7; O2SAT 95–100; BMI 41.3; BMI 13.0
--- NOTE | 2024-09-15 07:40 | SUR.PREOP ---
Patient expressed gratitude for prayer before their procedure.
[2024-09-15] MEDS: ACETAMINOPHEN 325 MG TABLET 650 MG PO (09:17)
[2024-09-15] MEDS: PREGABALIN 75 MG CAPSULE PO (09:18)
[2024-09-15] MEDS: MELOXICAM 7.5 MG TABLET PO (09:18)
--- NOTE | 2024-09-15 14:12 | PD.SUROPNT ---
Date of Procedure 09/15/24 Pre Op Diagnosis left knee osteoarthritis Post Op Diagnosis left knee osteoarthritis Procedure left total knee replacement karen Findings full thickness cartilage loss and osteophytes Procedure Description Indication: The patient is a 59 year old who has a long history of left knee pain. X-rays show degenerative arthritis involving the knee. Over the past several years the patient has had increasing pain, progressive limitation in function. He has failed conservative measures including activity modification, physical therapy, injections, anti-inflammatories, and assistive devices. After a lengthy discussion of the risks and benefits, the patient presents now for total knee replacement. The nature and purpose of the total knee replacement, alternative method(s) of treatment, the material risks involved, and the possibility of complications were fully explained to the patient. The patient was told the most common risks and complications associated with a total knee replacement include, but are not limited to blood clots in the leg, fatal pulmonary embolism, dislocation of the prosthesis, intraoperative and postoperative fractures of the femur or tibia, infection, failure of the prosthesis or grafting materials, complications from anesthesia, reactions to blood transfusions, postoperative leg length inequality, instability of the knee replacement, nerve damage or injury, vascular injury, delayed wound healing, infections, other injury or even . In addition, there are risks associated with anesthesia given during this operation, temporary or permanent numbness on the skin lateral to the incision can be a complication unique to total knee surgery, and kneeling can be painful after knee replacement surgery. Also, the patient was told that after undergoing a total knee replacement there may still be pain or disability. We discussed with the patient that we will be using a robot-assisted technology. We discussed that there is a possibility of converting to manual instrumentation. The patient was informed that the success of this operation in part depends upon the mechanical devices which are going to be implanted and that these devices can fail or malfunction, and may need to be repaired or replaced and there are no guarantees as to the longevity of this device or its part and that it or its parts could fail prematurely. Finally, the patient was asked to follow completely and fully with all advice and recommended treatments, and that recovery and ultimate outcome are affected by their compliance with recommended treatment. Surgical technique: Patient was marked and consented in the pre-operative area. The patient was brought to the operating room and placed on the operating table in a supine position. Prior to positioning, a timeout procedure was performed between the surgeon, the anesthesiologist, and the nursing staff where the patient and the operative side were identified and confirmed. After adequate general anesthetic was obtained, the left lower extremity was prepped and draped in the usual sterile fashion. A weight based dose of Cefazolin were administered within 1 hour prior to incision. The robot was preregistered and calirated before the incision. The extremity was exsanguinated with an esmarch badge and tourniquet inflated to 250mmHg. A midline incision was made. A median parapatellar arthrotomy was made. The patella was subluxed laterally. A medial release was performed to expose the medial tibia. His femoral and tibial pins were placed through an intra incisional manner for both cases. Every effort was made to ensure that the distalmost aspect of the pin was hung in the second cortex. The arrays were then tightened several times to ensure that it was fixed for the remainder of the case. Both femoral and tibial checkpoints were then placed. We then went through the registration process of the bone. We then assessed the knee deformity and attempted to correct it. We also used the robot to aid in judging laxity in both extension and flexion. Final based on laxity and alignment we changed the preoperative assessment to obtain proper proper implant positioning and to correct deformity. Attention was then placed to the tibia. We made a tibial cut using the robot ensuring that both the MCL and the patella tendon were protected with retractors. We then went to the femur and made the posterior cut followed by the anterior cut and the anterior chamfer. The bone was then removed and we made a distal femur cut and a posterior chamfer cut. We verified all cuts. A trial reduction was performed with a size 2 femoral component and a size 3 keeled tibial component. The patella tracked centrally, and no lateral retinacular release was necessary. The trial implants were removed. The arrays, pins, and checkpoints were all removed. We performed a verification that all pins were removed. The cut bone surfaces were lavaged. A size 2 left femoral component, a size 3 keeled tibial component, were impacted into position. The knee was felt to be well balanced in the sagittal and coronal plane. The final 3x10mm cruciate-substituting articular insert was impacted into the tibial tray. The knee was brought out to full extension, flexed up to 120 degrees. It was stable to varus and valgus stress and appropriately balanced in flexion and extension. The wounds were copiously irrigated following deflation of tourniquet. The medial retinaculum was reapproximated with #1 vicryl and quill. The subcutaneous tissues were closed with 0 and 2-0 interrupted Vicryl. The skin was closed with 3-0 Monofilament V loc suture. A sterile dressing was applied. The patient was transferred to a bed and brought to recovery in stable condition. The patient tolerated the procedure well. There were no intraoperative complications. Sponge and needle counts were correct times 2. As the attending surgeon, Randall gould I was present and performed the entire operation. Grafts/Implants Size 2 CR Femur Size 3 Tibia 10mm poly CS Anesthesia spinal Implants spencer Pathology / specimen None Pathology comment: none Estimated Blood Loss 150 Condition Stable Disposition same day Surgeon Red Morrison MD Surgical Staff Operation Date: 09/15/24 12:00 Case Staff EXHIBIT DESIGNER: Rj Humphries RNairway traffic controller: Judie Verma
--- NOTE | 2024-09-15 14:22 | XR_ITS ---
Examination: Left knee 2 views Technique one AP lateral left knee 2 views Date and time: September 15, 2024 1524 hours INDICATIONS: Postop knee replacement FINDINGS: Total left knee arthroplasty. Satisfactory alignment. Moderate osteopenia IMPRESSION: Total left knee arthroplasty with satisfactory alignment
[2024-09-15] MEDS: oxyCODONE HCL 5 MG IR TAB PO (15:27)
--- NOTE | 2024-09-15 15:38 | SUR.PHASEI ---
1441: Pt received in [facility] via gurney. Report from Merlyn CANTU and Rj AMATO. Pt obtunded. Oral airway in place. Resp even, unlabored. VS stable. Dressing to left knee dry, clean, intact. Bilateral pedal pulses strong, regular. 1450: Oral airway dc'd. Resp even, unlabored. 1510: Pt has been resting with no complaints voiced. Resp even, unlabored. VS stable. Dressing remains dry, clean, intact. Bilateral pedal pulses strong, regular.
--- NOTE | 2024-09-15 15:43 | SUR.PHASEII ---
1524: Pt more awake. Has c/o pain to left knee. Rates pain level 6/10. Pt given fluids and crackers which she consumed with no difficulty swallowing and no n/v. 1527: Pt denies nausea. Oxycodone given at this time per order. Radiology here to take ordered knee x-rays. 1535: X-rays complete. Pt tolerated procedure with no complaints voiced. 1548: Pt resting with no further complaints of pain. VS stable. Dressing remains dry, clean, intact. Bilateral pedal pulses strong, regular.
--- NOTE | 2024-09-15 16:41 | SUR.PHASEII ---
Addendum entered by Misti Rodrigues RN 09/15/24 16:46: Notes timed for 1435, 1443 time entered in error. Time should reflect 1635 and 1643. Original Note: 1435: Physical Therapy here to assess pt. 1443: Report to Andi CANTU.
--- NOTE | 2024-09-15 16:43 | SUR.PHASEII ---
report received from Misti Rn. pt awake and alert, breathing unlabored on room air. v/s stable. pt dressing to left lower extremity cdi.
--- NOTE | 2024-09-15 17:21 | SUR.PHASEII ---
pt awake and alert, breathing unlabored on room air. v/s stable. pt dressing to left lower extremity cdi. pt cleared by physical therapist Alessandra. pt able to ambulate to bathroom using walker. d/c instructions given with daughter Sharlene in room using distribution engineer Celeste carter [phone], all questions answered. pt d/c via wheelchair with all belongings.
== END 2024-09-15 17:21 | disposition home or self-care (01) ==
PROVIDERS: Anesthesiology; PCP Family Medicine; Referring Provider Orthopaedic Surgery Adult Reconstructive Orthopaedic Surgery; Visit Provider Orthopaedic Surgery Adult Reconstructive Orthopaedic Surgery
PROC: (CPT 27447; principal; 2024-09-15 12:00)
DX: M17.12 Unilateral primary osteoarthritis, left knee (principal); Z01.810 Encounter for preprocedural cardiovascular examination; M25.762 Osteophyte, left knee
CPT/HCPCS: 27447; 20985; 36415; 73560; 80053; 85025; 85610; 85730; 93005; 97162; A4217; C1713; C1776; J0690; J1100; J2371; J2405; J2704; J3010; J3490; J7999; A4648; A4649; A9270

== ENCOUNTER 2024-09-30 14:41 | Outpatient (AMB) | payer MEDICAID, SELFPAY ==
--- NOTE | 2024-09-30 14:52 | ORTHONT_ITS ---
Vital signs 09/30/24 14:58 Height 1.49 m Height Method Measured Weight 90.463 kg Weight Measurement Method Standing Scale BMI 40.7 BP 113/70 Blood Pressure Source Automatic Cuff Blood Pressure Location Right Upper Arm Position Sitting Respiration 18 Pulse 86 Pulse Source Monitor Temp 97.7 F Temp Source Temporal Artery Scan Pulse Oximetry (%) 93 L Oxygen Delivery Method Room Air Med/Allergies Allergies & Medications Allergies No Known Allergies Allergy (Verified 09/30/24 14:59) Medication Reconciliation amlodipine 10 mg tablet 10 mg PO QDAY 02/01/24 [History Confirmed 09/30/24] losartan 100 mg-hydrochlorothiazide 25 mg tablet 1 tab PO QDAY 02/01/24 [History Confirmed 09/30/24] carvedilol 3.125 mg tablet (Coreg) 3.125 mg PO BID 03/17/24 [History Confirmed 09/30/24] aspirin 81 mg tablet,delayed release 81 mg PO BID #60 tabs 09/15/24 [Rx Confirmed 09/30/24] doxycycline hyclate 100 mg tablet 100 mg PO BID #14 tabs 09/15/24 [Rx Confirmed 09/30/24] gabapentin 300 mg capsule 300 mg PO .qhs #30 caps 09/15/24 [Rx Confirmed 09/30/24] oxycodone 5 mg tablet 5 mg PO Q6H PRN pain #28 tabs 09/15/24 [Rx Confirmed 09/30/24] sennosides 8.6 mg-docusate sodium 50 mg tablet (Senna-S) 1 tab-cap PO QDAY #30 tabs 09/15/24 [Rx Confirmed 09/30/24] oxycodone 5 mg tablet 5 mg PO Q6H PRN pain #28 tabs 09/25/24 [Rx Confirmed 09/30/24] acetaminophen 500 mg tablet (Acetaminophen Extra Strength) 1,000 mg (2 x 500 mg) PO Q6H PRN pain #90 tabs 09/30/24 [Rx] Exam Exam Patient is in no acute distress and is cooperative with the examination today. Breathing is nonlabored. In no respiratory distress. Bilateral extremities were evaluated and demonstrates sensation intact to light touch. Palpable pedal pulses are present. No significant edema is present. Bilateral hips were examined. The patient has no pain with log roll of the hips. Internal rotation to 30 degrees and external rotation to 30 degrees is painless. Negative FADIR. The left knee was examined. The left knee is in [varus] alignment. Range of motion from [0-115] degrees. Knee is stable to varus and valgus as well as AP translation with <5mm. Patient has a [negative] Mc[place]. There is [no] pain with patellofemoral compression and [no] crepitus noted. The knee is [tender] to palpation [medially]. Right Knee incision is clean dry and intact xrays demonstrate a cementless total knee replacement in good alignment and position Assessment and Plan Problem List (1) Arthritis of both knees: Status: Acute Plan: 59-year-old female with bilateral knee pain and bilateral knee arthritis. She is status post right total knee replacement and is doing well. We will start her with physical therapy Office Procedures GNS Level of Care Nursing/Assessment Patient Status: Established Patient Nursing Assessment/Reassesment: Medication Reconciliation, Update PMH in EMR and Vital Signs Coordination of Care: Complex Care and Chronic Disease 1-5, Education Complex Pt/Fam, Consent,records obtained, informed consent, Results/Orders obtained and Staff clarify orders Special Needs: Language special needs Established Patient Charge Established Patient Point Assignment: 95 Established Patient Point Charge: EP Level 3 (80-115) MA Intake Visit Data Collection New Patient or Established: Established Patient (seen at [facility] within 3 years) Reason for Visit:: 2 WK LEFT TKA Seen by Clinical Staff ONLY (RN/MA): No Medical Technologist Chemistry Required: Yes PCP or OBGYN visit in last 3 months: Yes Hx Now: No Do You Feel Safe at Home: Yes Authorities Contacted: N/A Questionairres Past Medical History Past Medical History Have you ever been diagnosed with any of the following: Neurological Problems Seizures: No Cardiology Problems Congestive Heart Failure: No Hypertension: Yes Respiratory Problems Chronic Obstructive Pulmonary Disease (COPD): No Smoking: No Smoking Exposure: No Stomache/Intestinal Problems Hepatitis: No Obesity: Yes Genital/Urinary Problems Renal Disease: No Kidney Stones: No Reproductive Problems Previous Pregnancies: Yes Musculoskeletal Problems Arthritis: Yes Endocrine Problems Diabetes Mellitus Type 1: No Diabetes Mellitus Type 2: No Other Problems Hospitalization: No Shingles: No Falls: No Blood Transfusions: No Blood Transfusion Reaction: No Anesthesia Reactions: No Cancer: No Surgical History Total Knee Replacement: Yes (RIGHT TKA ) Subjective Visit Visit for: follow up visit, post op #2 and knee Immunization / Flu Flu Vaccine in the Last 12 Months: No Flu Vaccine Exclusion Criteria: No Exclusion Criteria History of Present Illness Chief complaint: 2 WK POST OP LEFT TKA Date of 1st surgery (if applicable): 08/26/2024 Patient is doing well status post left total knee replacement. She has minimal pain and swelling. She is doing well. She did have a rash which is resolving. Personal History Occupation: DISABLED Red flag PMH: none BMI Counceling provided: Yes Pain Pain level (0-10): 8 Pain duration: INTERMITTENT Pain location: anterior Pain quality: aching Pain timing: increases with activity Associated signs & symptoms: none Ambulatory data Ambulatory device: walker Treatments Improvement with previous injections: No Improvement with PT: No Improvement with NSAIDS: no Review of Systems Review of Systems: All systems negative unless otherwise noted in HPI.
[2024-09-30 14:58] VITALS: BP 113/70; PULSE 86; RESP 18; TEMP 36.5; O2SAT 93; BMI 40.7
== END 2024-09-30 15:17 | disposition home or self-care (01) ==
PROVIDERS: Supervising Provider Orthopaedic Surgery Adult Reconstructive Orthopaedic Surgery; Visit Provider Orthopaedic Surgery Adult Reconstructive Orthopaedic Surgery
DX: M17.0 Bilateral primary osteoarthritis of knee (principal); M25.562 Pain in left knee; M25.561 Pain in right knee; Z96.651 Presence of right artificial knee joint; I10 Essential (primary) hypertension; E66.9 Obesity, unspecified; Z68.41 Body mass index [BMI] 40.0-44.9, adult; Z71.3 Dietary counseling and surveillance
CPT/HCPCS: 99213; G0463

== ENCOUNTER 2024-10-08 13:53 | Outpatient (RCR) | payer MEDICAID, SELFPAY ==
--- NOTE | 2024-10-08 16:05 | PT.OIERPT ---
PT OP Initial Eval Patient Information Outpatient Physical Therapy Treatment Date: 10/08/24 Visit Reasons: Left TKA Medical Diagnosis: Left Knee OA; Left Knee Pain Treatment Dx #1: Left Knee Mobility Deficits Treatment Dx #2: Left Knee Weakness Start of Care: 10/08/24 Date of Onset: 09/15/24 Smoking Status Smoking Status: Never smoker Initial Assessment Subjective: Pt is a 59 y/o female s/p left TKA 09/15/[address] Morrison. Pt received 4 sessions of homehealth PT. Pt still has pain (/10) with activities. Pt has limitation with standing, chores, self care, balance, squatting, walking, and performing recreational activities. Objective: Left Knee AROM: -10 deg to 90 deg Left Knee PROM: -8 deg to 98 deg Left Knee MMTs: grossly 3+/5 Left Hip MMTs: grossly 3/5 SLS: unable Assessment: Pt demonstrate left knee mobility and strength deficits s/p TKA leading to difficulty with ADLs. Pt will benefit from physical therapy to increase ROM, strength, and work on ambulation. Short Term and Medical Appointment Clerk Goals 1) Increase left knee AROM to 120 in 12 wks to be able to perform squatting activities 2) Decrease knee extension lag to -8 deg in 12 wks to be able to have a better gait dental mechanic 3) Increase left knee MMTs grossly to 4/5 in 12 wks to be able to perform stairs and steps 4) Increase left hip MMTs grossly to 4-/5 in 12 wks to be able walk more than 30 mins 5) Indep with HEP Treatment Plan 1) Manual Therapy 2) Therapeutic Activities 3) Therapeutic Exercises 4) Modalities (ice, heat) 5) Gait Training 6) Balance Training Frequency and Duration: 2 x wk for 12 wks Certification Dates: 10/08/24 to 01/08/25 Procedure Charges OP PT Eval Mod Complex 30 minutes: Yes
== END 2024-10-09 23:59 | disposition home or self-care (01) ==
LOC: CPTX 13:53
PROVIDERS: PCP Orthopaedic Surgery Adult Reconstructive Orthopaedic Surgery; Referring Provider Orthopaedic Surgery Adult Reconstructive Orthopaedic Surgery; Visit Provider Orthopaedic Surgery Adult Reconstructive Orthopaedic Surgery
DX: M25.562 Pain in left knee (principal); R26.2 Difficulty in walking, not elsewhere classified; R26.89 Other abnormalities of gait and mobility; M17.12 Unilateral primary osteoarthritis, left knee; Z96.652 Presence of left artificial knee joint
CPT/HCPCS: 97162

== ENCOUNTER 2024-10-30 12:49 | Outpatient (AMB) | payer MEDICAID, SELFPAY ==
--- NOTE | 2024-10-30 13:01 | ORTHONT_ITS ---
Vital signs 10/30/24 13:03 Height 1.49 m Height Method Stated Weight 90.718 kg Weight Measurement Method Standing Scale BMI 40.8 BP 131/75 H Blood Pressure Source Automatic Cuff Blood Pressure Location Left Upper Arm Position Sitting Respiration 18 Pulse 78 Pulse Source Monitor Temp 97.7 F Temp Source Temporal Artery Scan Pulse Oximetry (%) 95 Oxygen Delivery Method Room Air Med/Allergies Allergies & Medications Allergies No Known Allergies Allergy (Verified 10/30/24 13:02) Medication Reconciliation amlodipine 10 mg tablet 10 mg PO QDAY 02/01/24 [History Confirmed 10/30/24] losartan 100 mg-hydrochlorothiazide 25 mg tablet 1 tab PO QDAY 02/01/24 [History Confirmed 10/30/24] carvedilol 3.125 mg tablet (Coreg) 3.125 mg PO BID 03/17/24 [History Confirmed 10/30/24] doxycycline hyclate 100 mg tablet 100 mg PO BID #14 tabs 09/15/24 [Rx Confirmed 10/30/24] gabapentin 300 mg capsule 300 mg PO .qhs #30 caps 09/15/24 [Rx Confirmed 10/30/24] sennosides 8.6 mg-docusate sodium 50 mg tablet (Senna-S) 1 tab-cap PO QDAY #30 tabs 09/15/24 [Rx Confirmed 10/30/24] oxycodone 5 mg tablet 5 mg PO Q6H PRN pain #28 tabs 09/25/24 [Rx Confirmed 10/30/24] acetaminophen 500 mg tablet (Acetaminophen Extra Strength) 1,000 mg (2 x 500 mg) PO Q6H PRN pain #90 tabs 09/30/24 [Rx Confirmed 10/30/24] hydroxyzine HCl 25 mg tablet 25 mg PO BID PRN itching #30 tabs 09/30/24 [Rx Confirmed 10/30/24] Exam Exam Patient is in no acute distress and is cooperative with the examination today. Breathing is nonlabored. In no respiratory distress. Bilateral extremities were evaluated and demonstrates sensation intact to light touch. Palpable pedal pulses are present. No significant edema is present. Bilateral hips were examined. The patient has no pain with log roll of the hips. Internal rotation to 30 degrees and external rotation to 30 degrees is painless. Negative FADIR. L knee incision is c/d/i ROM0-110 Right Knee incision is clean dry and intact xrays demonstrate a cementless total knee replacement in good alignment and position Assessment and Plan Problem List (1) Arthritis of both knees: Status: Acute Plan: 59-year-old female with bilateral knee pain and bilateral knee arthritis. She is status post right total knee replacement and is doing well. We will start her with physical therapy Office Procedures GNS Level of Care Nursing/Assessment Patient Status: Established Patient Nursing Assessment/Reassesment: Medication Reconciliation, Update PMH in EMR and Vital Signs Coordination of Care: Complex Care and Chronic Disease 1-5, Education Complex Pt/Fam, Consent,records obtained, informed consent, Results/Orders obtained and Staff clarify orders Special Needs: Language special needs Established Patient Charge Established Patient Point Assignment: 95 Established Patient Point Charge: EP Level 3 (80-115) MA Intake Visit Data Collection New Patient or Established: Established Patient (seen at [facility] within 3 years) Reason for Visit:: 6 WK LEFT TKA Seen by Clinical Staff ONLY (RN/MA): No Certified Hyperbaric Technologist Required: Yes PCP or OBGYN visit in last 3 months: Yes Hx Now: No Do You Feel Safe at Home: Yes Authorities Contacted: N/A Questionairres Past Medical History Past Medical History Have you ever been diagnosed with any of the following: Neurological Problems Seizures: No Cardiology Problems Congestive Heart Failure: No Hypertension: Yes Respiratory Problems Chronic Obstructive Pulmonary Disease (COPD): No Smoking: No Smoking Exposure: No Stomache/Intestinal Problems Hepatitis: No Obesity: Yes Genital/Urinary Problems Renal Disease: No Kidney Stones: No Reproductive Problems Previous Pregnancies: Yes Musculoskeletal Problems Arthritis: Yes Endocrine Problems Diabetes Mellitus Type 1: No Diabetes Mellitus Type 2: No Other Problems Hospitalization: No Shingles: No Falls: No Blood Transfusions: No Blood Transfusion Reaction: No Anesthesia Reactions: No Cancer: No Surgical History Total Knee Replacement: Yes (RIGHT TKA ) Subjective Visit Visit for: follow up visit, post op #3 and knee Immunization / Flu Flu Vaccine in the Last 12 Months: No Flu Vaccine Exclusion Criteria: No Exclusion Criteria History of Present Illness Chief complaint: 6 WK POST OP LEFT TKA Date of 1st surgery (if applicable): 08/26/2024 Patient is doing well status post left total knee replacement. She has minimal pain and swelling. She is doing well. Personal History Occupation: DISABLED Red flag PMH: none BMI Counceling provided: Yes Pain Pain level (0-10): 0 Pain duration: INTERMITTENT Pain location: anterior Pain quality: aching Pain timing: increases with activity Associated signs & symptoms: none Ambulatory data Ambulatory device: walker Treatments Improvement with previous injections: No Improvement with PT: No Improvement with NSAIDS: no Review of Systems Review of Systems: All systems negative unless otherwise noted in HPI.
[2024-10-30 13:03] VITALS: BP 131/75; PULSE 78; RESP 18; TEMP 36.5; O2SAT 95; BMI 40.8
--- NOTE | 2024-10-30 13:06 | XR_ITS ---
Examination: Bilateral knees 2 views Right lateral knee left lateral knee 2 views Bilateral axial knees single view TECHNIQUE: Bilateral AP knees standing single view, bilateral PA knees standing single view flexion Standing right lateral knee left lateral knee 2 views Bilateral axial knees single view Date and time: October 30, 2024 1312 hours INDICATIONS: Knee pain months FINDINGS: Moderate osteopenia Bilateral total knee arthroplasties. Satisfactory alignment. No loosening of the prosthetic components. No fractures. Small bilateral knee effusions. No patellar dislocations IMPRESSION: Bilateral total knee arthroplasties with satisfactory alignment
== END 2024-10-30 13:11 | disposition home or self-care (01) ==
LOC: HODSRG 12:49
PROVIDERS: Supervising Provider Orthopaedic Surgery Adult Reconstructive Orthopaedic Surgery; Visit Provider Orthopaedic Surgery Adult Reconstructive Orthopaedic Surgery
DX: M17.0 Bilateral primary osteoarthritis of knee (principal); M25.562 Pain in left knee; M25.561 Pain in right knee; Z96.651 Presence of right artificial knee joint; I10 Essential (primary) hypertension; E66.9 Obesity, unspecified; Z68.41 Body mass index [BMI] 40.0-44.9, adult
CPT/HCPCS: 73564; 99213; G0463

== ENCOUNTER 2024-11-06 10:00 | Outpatient (RCR) | payer MEDICAID, SELFPAY ==
--- NOTE | 2024-10-10 11:06 | PT.ODAYNRPT ---
PT Outpatient Daily Note OP Daily Note Outpatient Physical Therapy Treatment Date: 10/10/24 Visit Reasons: Left TKA Subjective: Pt's knee is always sore at home. Pt continues HEP daily. Objective: Left Knee Flexion AROM: 95 deg Assessment: Pt is progressing with knee flexion AROM with less pain reported. Pt had difficulty with SAQ due to quad weakness Plan: Continue with PT Length of Time (minutes) of Treatment: 30 Minutes Procedure Charges Therapeutic Exercise 30 minutes: Yes
--- NOTE | 2024-10-15 11:06 | PT.ODAYNRPT ---
PT Outpatient Daily Note OP Daily Note Outpatient Physical Therapy Treatment Date: 10/15/24 Visit Reasons: Left TKA Subjective: Pt content with how L knee sx is progressing so far. Objective: Please see flow sheet for ther ex list. Assessment: Pt tolerated PROM into knee flexion with minimal pain and minimal guarding allowing for increase ROM. Plan: Continue with pOC. Length of Time (minutes) of Treatment: 30 Minutes Procedure Charges Therapeutic Exercise 30 minutes: Yes
--- NOTE | 2024-10-17 09:39 | PT.ODAYNRPT ---
PT Outpatient Daily Note OP Daily Note Outpatient Physical Therapy Treatment Date: 10/17/24 Visit Reasons: Left TKA Subjective: Pt's knee is better. Pt still has difficulty bending her knee. Objective: Left Knee Flexion AROM: 92 deg Left Knee Flexion PROM: 103 deg Assessment: Pt is slowly progressing with knee ROM; added more closed chain exercises today with good tolerance Plan: Continue with PT Length of Time (minutes) of Treatment: 30 Minutes Procedure Charges Therapeutic Exercise 30 minutes: Yes
--- NOTE | 2024-10-21 11:30 | PT.ODAYNRPT ---
PT Outpatient Daily Note OP Daily Note Outpatient Physical Therapy Treatment Date: 10/21/24 Visit Reasons: Left TKA Subjective: Pt is not feeling too well this morning. Objective: Please see flow chart for list of ther ex perfomed Assessment: patient came into therapy session with mask on and sounds congested. Pt was pace more throughout PT session due to not feeling well and took multiple water break. Pt completed therapy session with good tolerance to instructed exercises Plan: Continue with PT Length of Time (minutes) of Treatment: 30 Minutes Procedure Charges Therapeutic Exercise 30 minutes: Yes
--- NOTE | 2024-10-24 12:36 | PT.ODAYNRPT ---
PT Outpatient Daily Note OP Daily Note Outpatient Physical Therapy Treatment Date: 10/24/24 Visit Reasons: Left TKA Subjective: Pt's knee is much better. Pt continues HEP at home. Pt notice less pain lately with walking; limitation is her big toe due to ingrown nail. Objective: Please see flow chart for list of ther ex performed Assessment: improved knee flexion AROM with forward lunge exercise today. Less use of hand with balance indicating improved SLS stability. Plan: Continue with PT Length of Time (minutes) of Treatment: 30 Minutes Procedure Charges Therapeutic Exercise 30 minutes: Yes
--- NOTE | 2024-10-28 11:07 | PT.ODAYNRPT ---
PT Outpatient Daily Note OP Daily Note Outpatient Physical Therapy Treatment Date: 10/28/24 Visit Reasons: Left TKA Subjective: Pt reports her L knee is doing better, has beed doing HEP at home. At the end of PT session today pt mentioned that they removed her toe nail yesterday. Objective: Please see flow sheet for ther ex list. Assessment: Added HS curl pt completed with muscle fatigue but no pain to report. Plan: Continue with pOC. Length of Time (minutes) of Treatment: 30 Minutes Procedure Charges Therapeutic Exercise 30 minutes: Yes
--- NOTE | 2024-10-30 10:57 | PT.ODAYNRPT ---
PT Outpatient Daily Note OP Daily Note Outpatient Physical Therapy Treatment Date: 10/30/24 Visit Reasons: Left TKA Subjective: Pt's knee feels good and no new complaints to report. Objective: Left Knee Flexion AROM: 95 deg Assessment: Pt is progressing with knee flexion AROM with less pain reported. Added sci fit to exercise program and she was able to complete full cycle with minimal knee limitation Plan: Continue with PT Length of Time (minutes) of Treatment: 30 Minutes Procedure Charges Therapeutic Exercise 30 minutes: Yes
--- NOTE | 2024-11-04 11:38 | PT.ODAYNRPT ---
PT Outpatient Daily Note OP Daily Note Outpatient Physical Therapy Treatment Date: 11/04/24 Visit Reasons: Left TKA Subjective: Pt reports L knee is doing better, seen surgeon last week and mention for her to continue using FWW until she feels more confident being without. Objective: Please see flow sheet for ther ex list. Assessment: Pt instructed on improving knee flexion during swing phase. Plan: Continue with POC. Length of Time (minutes) of Treatment: 30 Minutes Procedure Charges Therapeutic Exercise 30 minutes: Yes
--- NOTE | 2024-11-06 12:00 | PT.ODAYNRPT ---
PT Outpatient Daily Note OP Daily Note Outpatient Physical Therapy Treatment Date: 11/06/24 Visit Reasons: Left TKA Subjective: Pt's knee is better. Pt mentioned her ingrown toes continues to give her trouble. Pt seen sanitation superintendent this morning and gave her some meds. Objective: Please see flow chart for list of ther ex performed Assessment: improving with gait able to WB on the left LE. Decrease pain and improved knee flexion with fwd lunge exercise Plan: Continue with PT Length of Time (minutes) of Treatment: 30 Minutes Procedure Charges Therapeutic Exercise 30 minutes: Yes
== END 2024-11-09 23:59 | disposition home or self-care (01) ==
LOC: CPTX 10:00
PROVIDERS: PCP Orthopaedic Surgery Adult Reconstructive Orthopaedic Surgery; Referring Provider Orthopaedic Surgery Adult Reconstructive Orthopaedic Surgery; Visit Provider Orthopaedic Surgery Adult Reconstructive Orthopaedic Surgery
DX: M25.562 Pain in left knee (principal); R53.1 Weakness; R26.2 Difficulty in walking, not elsewhere classified; R26.89 Other abnormalities of gait and mobility; M17.12 Unilateral primary osteoarthritis, left knee; Z96.652 Presence of left artificial knee joint
CPT/HCPCS: 97110

== ENCOUNTER 2024-11-17 10:30 | Outpatient (RCR) | payer MEDICAID, SELFPAY ==
--- NOTE | 2024-11-11 10:50 | PT.ODAYNRPT ---
PT Outpatient Daily Note <ROSA Abraham - Last Filed: 11/11/24 10:56> OP Daily Note Outpatient Physical Therapy Treatment Date: 11/11/24 Visit Reasons: LEFT TKA Subjective: Pt arrives using single point cane and explains she is doing with little pain to L knee. Objective: See F/S for therex MT: L knee flexion PROM x 7 min Assessment: Tolerated knee flexion PROM well, knee flexion limited due to pain. Continuing to improve with WB on L LE. Plan: Continue with POC Length of Time (minutes) of Treatment: 30 Minutes <Dez Velez PT - Last Filed: 11/11/24 11:40> OP Daily Note Objective: See F/S for therex MT: L knee flexion passive stretch x 7 min Assessment: Tolerated knee flexion passive stretching well; knee flexion limited due to pain. Continuing to improve with WB on L LE. Procedure Charges <ROSA Abraham - Last Filed: 11/11/24 10:56> Therapeutic Exercise 30 minutes: Yes
--- NOTE | 2024-11-13 10:47 | PT.ODAYNRPT ---
PT Outpatient Daily Note <ROSA Abraham - Last Filed: 11/13/24 10:57> OP Daily Note Outpatient Physical Therapy Treatment Date: 11/13/24 Visit Reasons: LEFT TKA Subjective: Pt arrived stating she is experiencing an increase L knee pain due to riding in an uncomfortable back seat which caused her to bend her knee more. Objective: See F/S fort therex L knee flexion AROM: 100; post passive knee flexion stretch: 103 Assessment: Pt reported a decrease in pain post bike and tolerated knee flexion passive stretch well with improvement in ROM, 100 to 103. Demo'd increase knee flexion with fwd lunge. Minimal vc's required to correct L foot alignment with resisted lateral steps. Plan: Continue with POC Length of Time (minutes) of Treatment: 30 Minutes <Dez Velez PT - Last Filed: 11/13/24 11:35> OP Daily Note Objective: L knee flexion AROM: 100 deg//103 deg Assessment: Pt reported a decrease in knee pain post bike and tolerated knee flexion passive stretching well.Pt's knee AROM improved from 100 to 103 post knee flexion passive stretch. Demo'd increase knee flexion with fwd lunge. Minimal vc's required to correct L foot alignment with resisted lateral steps. Procedure Charges <ROSA Abraham - Last Filed: 11/13/24 10:57> Therapeutic Exercise 30 minutes: Yes
--- NOTE | 2024-11-17 12:11 | PT.ODS1RPT ---
PT OP Progress/Discharge Note Date of Service: 11/17/24 Progress Note/DC Note Progress Note/Discharge Note: Progress Note Patient Information Visit Reasons: LEFT TKA Medical Diagnosis: Left Knee OA; Left Knee Pain Treatment Dx #1: Left Knee Mobility Deficits Treatment Dx #2: Left Knee Weakness Service Continue Service or Discharge: Continue Service Certification Date Certification Dates: 11/17/24 to 02/16/25 Status Subjective: Pt's knee is feeling much better and is progressing well. Pt has been able to stand, walk, perform chores, and stairs with less limitation. Pt still has difficulty with prolonged activities, balance, and performing recreational activities. Pt now feels safe using a cane to walk. Objective: Left Knee AROM: -8 deg to 106 deg Left Knee PROM: -8 deg to 110 deg Left KNee MMTs: grossly 4-/5 Left Hip MMTs: grossly 3+/5 SLS: NT Assessment: Pt is progressing with left knee AROM and strength allowing her to start light ADLs with less limitation. Pt has not met set goals and will continue to benefit from physical therapy to increase ROM, strength, and work on balance; thank you for your referrals. Plan: Continue with PT/POC and add 8 sessions (2 x wk for 4 wks) Procedure Charges Therapeutic Exercise 30 minutes: Yes
== END 2024-12-09 23:59 | disposition home or self-care (01) ==
LOC: CPTX 10:30
PROVIDERS: PCP Orthopaedic Surgery Adult Reconstructive Orthopaedic Surgery; Referring Provider Orthopaedic Surgery Adult Reconstructive Orthopaedic Surgery; Visit Provider Orthopaedic Surgery Adult Reconstructive Orthopaedic Surgery
DX: M25.562 Pain in left knee (principal); R53.1 Weakness; R26.2 Difficulty in walking, not elsewhere classified; R26.89 Other abnormalities of gait and mobility; Z96.652 Presence of left artificial knee joint
CPT/HCPCS: 97110

== ENCOUNTER 2025-01-02 08:21 | Outpatient (AMB) | payer MEDICAID, SELFPAY ==
--- NOTE | 2025-01-02 08:39 | PD.ORTHCLVIS ---
Vital signs 01/02/25 08:42 Height 1.49 m Height Method Stated Weight 94.064 kg Weight Measurement Method Standing Scale BMI 42.3 BP 137/76 H Blood Pressure Source Automatic Cuff Blood Pressure Location Left Upper Arm Position Sitting Respiration 19 Pulse 62 Pulse Source Monitor Temp 97.5 F Temp Source Temporal Artery Scan Pulse Oximetry (%) 95 Oxygen Delivery Method Room Air Med/Allergies Allergies & Medications Allergies No Known Allergies Allergy (Verified 01/02/25 08:42) Medication Reconciliation amlodipine 10 mg tablet 10 mg PO QDAY 02/01/24 [History Confirmed 01/02/25] losartan 100 mg-hydrochlorothiazide 25 mg tablet 1 tab PO QDAY 02/01/24 [History Confirmed 01/02/25] carvedilol 3.125 mg tablet (Coreg) 3.125 mg PO BID 03/17/24 [History Confirmed 01/02/25] doxycycline hyclate 100 mg tablet 100 mg PO BID #14 tabs 09/15/24 [Rx Confirmed 01/02/25] gabapentin 300 mg capsule 300 mg PO .qhs #30 caps 09/15/24 [Rx Confirmed 01/02/25] sennosides 8.6 mg-docusate sodium 50 mg tablet (Senna-S) 1 tab-cap PO QDAY #30 tabs 09/15/24 [Rx Confirmed 01/02/25] oxycodone 5 mg tablet 5 mg PO Q6H PRN pain #28 tabs 09/25/24 [Rx Confirmed 01/02/25] acetaminophen 500 mg tablet (Acetaminophen Extra Strength) 1,000 mg (2 x 500 mg) PO Q6H PRN pain #90 tabs 09/30/24 [Rx Confirmed 01/02/25] hydroxyzine HCl 25 mg tablet 25 mg PO BID PRN itching #30 tabs 09/30/24 [Rx Confirmed 01/02/25] Exam Exam Patient is in no acute distress and is cooperative with the examination today. Breathing is nonlabored. In no respiratory distress. Bilateral extremities were evaluated and demonstrates sensation intact to light touch. Palpable pedal pulses are present. No significant edema is present. Bilateral hips were examined. The patient has no pain with log roll of the hips. Internal rotation to 30 degrees and external rotation to 30 degrees is painless. Negative FADIR. L knee incision is c/d/i ROM0-110 Right Knee incision is clean dry and intact xrays demonstrate a cementless total knee replacement in good alignment and position Assessment and Plan Problem List (1) Arthritis of both knees: Status: Acute Plan: 59-year-old female with bilateral knee pain and bilateral knee arthritis. She is status post left and right total knee replacement and is doing well. We will see her back in 6 months for routine followup Office Procedures GNS Level of Care Nursing/Assessment Patient Status: Established Patient Nursing Assessment/Reassesment: Medication Reconciliation, Update PMH in EMR and Vital Signs Coordination of Care: Complex Care and Chronic Disease 1-5, Education Complex Pt/Fam, Consent,records obtained, informed consent, Results/Orders obtained and Staff clarify orders Special Needs: Language special needs Established Patient Charge Established Patient Point Assignment: 95 Established Patient Point Charge: EP Level 3 (80-115) MA Intake Visit Data Collection New Patient or Established: Established Patient (seen at [facility] within 3 years) Reason for Visit:: L TKA FU Seen by Clinical Staff ONLY (RN/MA): No Upper Cutter Out Required: Yes PCP or OBGYN visit in last 3 months: Yes Hx Now: No Do You Feel Safe at Home: Yes Authorities Contacted: N/A Questionairres Past Medical History Past Medical History Have you ever been diagnosed with any of the following: Neurological Problems Seizures: No Cardiology Problems Congestive Heart Failure: No Hypertension: Yes Respiratory Problems Chronic Obstructive Pulmonary Disease (COPD): No Smoking: No Smoking Exposure: No Stomache/Intestinal Problems Hepatitis: No Obesity: Yes Genital/Urinary Problems Renal Disease: No Kidney Stones: No Reproductive Problems Previous Pregnancies: Yes Musculoskeletal Problems Arthritis: Yes Endocrine Problems Diabetes Mellitus Type 1: No Diabetes Mellitus Type 2: No Other Problems Hospitalization: No Shingles: No Falls: No Blood Transfusions: No Blood Transfusion Reaction: No Anesthesia Reactions: No Cancer: No Surgical History Total Knee Replacement: Yes (RIGHT TKA ) Subjective Visit Visit for: follow up visit and knee Immunization / Flu Flu Vaccine in the Last 12 Months: No Flu Vaccine Exclusion Criteria: No Exclusion Criteria History of Present Illness Chief complaint: L TKA F/U Date of 1st surgery (if applicable): 08/26/2024 Patient is doing well status post left total knee replacement. She is 3 months postop. She has minimal pain and swelling. She is doing well. Personal History Occupation: DISABLED Red flag PMH: none BMI Counceling provided: Yes Pain Pain level (0-10): 1 Pain duration: ON OFF Pain location: anterior Pain quality: burning (RIGHT KNEE) Pain timing: increases with activity Associated signs & symptoms: none Ambulatory data Ambulatory device: walker Treatments Improvement with previous injections: No Improvement with PT: No Improvement with NSAIDS: no Review of Systems Review of Systems: All systems negative unless otherwise noted in HPI.
[2025-01-02 08:42] VITALS: BP 137/76; PULSE 62; RESP 19; TEMP 36.4; O2SAT 95; BMI 42.3
== END 2025-01-02 08:47 | disposition home or self-care (01) ==
LOC: HODSRG 08:21
PROVIDERS: Supervising Provider Orthopaedic Surgery Adult Reconstructive Orthopaedic Surgery; Visit Provider Orthopaedic Surgery Adult Reconstructive Orthopaedic Surgery
DX: Z47.1 Aftercare following joint replacement surgery (principal); Z96.652 Presence of left artificial knee joint; M25.562 Pain in left knee; M25.561 Pain in right knee; I10 Essential (primary) hypertension; E66.9 Obesity, unspecified; Z68.41 Body mass index [BMI] 40.0-44.9, adult
CPT/HCPCS: 99213; G0463

== ENCOUNTER 2025-01-08 10:30 | Outpatient (RCR) | payer MEDICAID, SELFPAY ==
--- NOTE | 2024-12-23 15:04 | PT.ODAYNRPT ---
PT Outpatient Daily Note OP Daily Note Outpatient Physical Therapy Treatment Date: 12/23/24 Visit Reasons: Left Tka Subjective: Pt's knee feels much better. Pt mentioned she only use cane occasionally. Objective: Left Knee Flexion AROM: 198 deg Assessment: Pt is slowly progressing with knee flexion AROM. Pt able to negotiate step up and lateral step up on the 6 step with minimal hand use. Plan: Continue with PT Length of Time (minutes) of Treatment: 30 Minutes Procedure Charges Therapeutic Exercise 30 minutes: Yes
--- NOTE | 2024-12-25 11:44 | PT.ODAYNRPT ---
PT Outpatient Daily Note OP Daily Note Outpatient Physical Therapy Treatment Date: 12/25/24 Visit Reasons: Left Tka Subjective: Pt's knee is feeling good. No new concerns to report. Objective: Please see flow chart for list of ther ex performed Assessment: tolerate all exercises performed. Continues to improve with more WB as patient is coming up on the step with step up/lateral step up exercises Plan: Continue with PT Length of Time (minutes) of Treatment: 30 Minutes Procedure Charges Therapeutic Exercise 30 minutes: Yes
--- NOTE | 2024-12-30 13:44 | PTNOTE_ITS ---
PT Outpatient Daily Note OP Daily Note Outpatient Physical Therapy Treatment Date: 12/30/24 Visit Reasons: Left Tka Subjective: Pt reports L knee is doing ok, feel progress is slow. Objective: Please see flow sheet for ther ex list. Assessment: Pt instructed on step up exercise, requires STRUCTURAL STEEL DETAILER to navigate steps safely. Plan: Continue with poC>. Length of Time (minutes) of Treatment: 30 Minutes Procedure Charges Therapeutic Exercise 30 minutes: Yes
--- NOTE | 2025-01-01 11:30 | PT.ODAYNRPT ---
PT Outpatient Daily Note OP Daily Note Outpatient Physical Therapy Treatment Date: 01/01/25 Visit Reasons: Left Tka Subjective: Pt c/o knee feeling sore after last session. Objective: Please see flow sheet for ther ex list. Assessment: Continued focus on restoring ROM and strength, pt encouraged to continue with HEP. Plan: Continue with poC. Length of Time (minutes) of Treatment: 30 Minutes Procedure Charges Therapeutic Exercise 30 minutes: Yes
--- NOTE | 2025-01-06 11:15 | PTNOTE_ITS ---
PT Outpatient Daily Note OP Daily Note Outpatient Physical Therapy Treatment Date: 01/06/25 Visit Reasons: Left Tka Subjective: Pt reports doctor has cleared her. Pt feels her knee is progressing but still has occasional pain. Objective: Please see flow sheet for ther ex list. Assessment: Pt instructed on steps stairs, can perform with single BREASTFEEDING PROGRAM COORDINATOR. Plan: Continue with poC. Length of Time (minutes) of Treatment: 30 Minutes Procedure Charges Therapeutic Exercise 30 minutes: Yes
--- NOTE | 2025-01-08 11:20 | PT.ODAYNRPT ---
PT Outpatient Daily Note OP Daily Note Outpatient Physical Therapy Treatment Date: 01/08/25 Visit Reasons: Left Tka Subjective: Pt's knee is better and recently seen surgeon. Surgeon wants patient to complete authorized PT sessions Objective: Please see flow chart for list of ther ex performed Assessment: fatigue post side step/monster walk exercises due to increase resistance to red Plan: Continue with PT Length of Time (minutes) of Treatment: 30 Minutes Procedure Charges Therapeutic Exercise 30 minutes: Yes
== END 2025-01-09 23:59 | disposition home or self-care (01) ==
LOC: CPTX 10:30
PROVIDERS: PCP Orthopaedic Surgery Adult Reconstructive Orthopaedic Surgery; Referring Provider Orthopaedic Surgery Adult Reconstructive Orthopaedic Surgery; Visit Provider Orthopaedic Surgery Adult Reconstructive Orthopaedic Surgery
DX: M25.562 Pain in left knee (principal); R53.1 Weakness; R26.89 Other abnormalities of gait and mobility; R26.2 Difficulty in walking, not elsewhere classified; Z96.652 Presence of left artificial knee joint
CPT/HCPCS: 97110

== ENCOUNTER 2025-01-29 10:30 | Outpatient (RCR) | payer MEDICAID, SELFPAY ==
--- NOTE | 2025-01-12 12:08 | PT.ODAYNRPT ---
PT Outpatient Daily Note OP Daily Note Outpatient Physical Therapy Treatment Date: 01/12/25 Visit Reasons: lEFT TKA Subjective: Pt's knee feels good. No concerns to report. Pt seen surgeon about 2 weeks ago and wants her to complete authorized PT session Objective: Please see flow chart for list of ther ex performed Assessment: Instructed patient on 6 step up and lateral step up exercises; performed with good form Plan: Continue with PT Length of Time (minutes) of Treatment: 30 Minutes Procedure Charges Manual Critical Systems Technician 30 minutes: Yes
--- NOTE | 2025-01-14 11:16 | PT.ODAYNRPT ---
PT Outpatient Daily Note OP Daily Note Outpatient Physical Therapy Treatment Date: 01/14/25 Visit Reasons: lEFT TKA Subjective: Pt reports L knee is sore today, went grocery shopping this weekend Objective: Please see flow sheet for ther ex list. Assessment: Held resistance for todays interventions to accommodate reported soreness. Plan: Continue with pOC. Length of Time (minutes) of Treatment: 30 Minutes Procedure Charges Therapeutic Exercise 30 minutes: Yes
--- NOTE | 2025-01-21 11:32 | PT.ODAYNRPT ---
PT Outpatient Daily Note OP Daily Note Outpatient Physical Therapy Treatment Date: 01/21/25 Visit Reasons: lEFT TKA Subjective: Pt's knee is better. Pt does not have any concerns to report. Objective: Please see flow chart for list of ther ex performed Assessment: progressing with closed chain exercises as well as overall dynamic balance without AD during gait Plan: Continue with PT Length of Time (minutes) of Treatment: 30 Minutes Procedure Charges Therapeutic Exercise 30 minutes: Yes
--- NOTE | 2025-01-23 10:51 | PT.ODAYNRPT ---
PT Outpatient Daily Note OP Daily Note Outpatient Physical Therapy Treatment Date: 01/23/25 Visit Reasons: lEFT TKA Subjective: Pt's knee is better. No new concerns to report. Objective: Please see flow chart for list of ther ex performed Assessment: tolerate exercises with minimal pain; patient can now ambulate without AD. All exercises performed out side of the parallel bar Plan: Continue with PT Length of Time (minutes) of Treatment: 30 Minutes Procedure Charges Therapeutic Exercise 30 minutes: Yes
--- NOTE | 2025-01-27 11:28 | PT.ODAYNRPT ---
PT Outpatient Daily Note OP Daily Note Outpatient Physical Therapy Treatment Date: 01/27/25 Visit Reasons: lEFT TKA Subjective: Pt reports knee is doing better overall but notices that the cold weather is causing pain and stiffness. Objective: Please see flow sheet for ther ex list. Assessment: Progressing interventions per post op protocol. Plan: Continue with poC. Procedure Charges Therapeutic Exercise 30 minutes: Yes
--- NOTE | 2025-01-29 11:59 | PT.ODS1RPT ---
PT OP Progress/Discharge Note Date of Service: 01/29/25 Progress Note/DC Note Progress Note/Discharge Note: DC Note Patient Information Visit Reasons: lEFT TKA Medical Diagnosis: Left Knee OA; Left Knee Pain Treatment Dx #1: Left Knee Mobility Deficiits Treatment Dx #2: Left Knee Weakness Service Continue Service or Discharge: Discharge Discharge Date: 01/29/25 Status Subjective: Pt's knee is good. Pt has been able to stand, walk, perform chores, ADLs, and recreational activities with minimal limitation. At this time Pt will like to be release from care. Objective: Left Knee AROM: -8 deg to 111 deg Left Knee PROM: -8 deg to 119 deg Left Knee MMTs: grossly 4/5 Left Hip MMTs: grossly 4-/5 SLS: 20 sec Assessment: Pt demonstrate improved left knee mobility and strength allowing her to resume ADLs with less limitation. Pt has met most goals set in therapy and will like to be release from care. Pt was instructed on HEP last session and educated to continue exercises to maintain overall mobility. Pt perfomed all exercises safely, thank you for your referrals. Plan: D/C home with HEP and follow up with MD DUBOSE Procedure Charges Therapeutic Exercise 30 minutes: Yes
== END 2025-02-08 23:59 | disposition home or self-care (01) ==
LOC: CPTX 10:30
PROVIDERS: PCP Orthopaedic Surgery Adult Reconstructive Orthopaedic Surgery; Referring Provider Orthopaedic Surgery Adult Reconstructive Orthopaedic Surgery; Visit Provider Orthopaedic Surgery Adult Reconstructive Orthopaedic Surgery
DX: Z47.1 Aftercare following joint replacement surgery (principal); Z96.652 Presence of left artificial knee joint; M25.562 Pain in left knee; R26.2 Difficulty in walking, not elsewhere classified; R26.89 Other abnormalities of gait and mobility
CPT/HCPCS: 97110; 97140